=== PATIENT | female | born 1935 | race Caucasian/White ===

== ENCOUNTER → 2024-05-02 10:49 | Outpatient (REF) | payer OTHER, SELFPAY | LOC: RCS 10:49 | PROVIDERS: ATTENDING PHYSICIAN Internal Medicine Cardiovascular Disease; FAMILY PHYSICIAN Family Medicine | DX: I10 Essential (primary) hypertension (principal); R60.0 Localized edema | CPT/HCPCS: 93306 ==

== ENCOUNTER → 2025-02-05 11:02 | Outpatient (REF) | payer OTHER, SELFPAY | LOC: RCS 11:02 | PROVIDERS: ATTENDING PHYSICIAN Internal Medicine Cardiovascular Disease; FAMILY PHYSICIAN Family Medicine | DX: I50.32 Chronic diastolic (congestive) heart failure (principal); I48.21 Permanent atrial fibrillation | CPT/HCPCS: 93306 ==

== ENCOUNTER 2025-02-15 22:50 | Inpatient (IN) | payer OTHER, SELFPAY ==
[2025-02-15] VITALS (9 sets, daily range): BP systolic 126–157; BP diastolic 54–76
[2025-02-15 15:08] LABS: Hematocrit 25.0 % (37.0-47.0); Hemoglobin 7.8 g/dL (12.0-16.0); Mean Corp Hgb Conc. 31.2 g/dL (33.0-37.0); Mean Corpuscular Volume 75.8 fL (81.0-99.0); Nucleated Red Blood Cells % 0 %; Platelet Count 168 10^3/uL (130-400); Red Cell Dist. Width 17.2 % (11.5-14.5)
[2025-02-15 15:53] LABS: ALT (SGPT) 15 U/L (0-35); AST (SGOT) 26 U/L (14-36); Albumin 4.1 g/dl (3.5-5.0); Alkaline Phosphatase 87 U/L (38-126); Blood Urea Nitrogen 21 mg/dl (7-17); Calcium 9.4 mg/dl (8.4-10.2); Carbon Dioxide 27 mmol/L (22-30); Chloride 102 mmol/L (98-107); Glucose 130 mg/dl (70-99); Potassium 3.4 mmol/L (3.5-5.1); Sodium 136 mmol/L (135-145); Total Protein 6.5 g/dl (6.3-8.2); eGFR 54.19
--- NOTE | 2025-02-15 18:17 | EDRN ---
VAT RN TT'd for IV access at this time. Unable to obtain IV access x2.
[2025-02-15] MEDS: KCL 20 MEQ PO ×2 (18:33→21:39)
--- NOTE | 2025-02-15 18:35 | EDRN ---
IV VAT RN down and pt has a L FA #20 IV access at this time.
--- NOTE | 2025-02-15 18:49 | ED.GENMED ---
History of Present Illness
<Ashley Jensen PA-C - Last Filed: 02/16/25 01:02>
General
Chief Complaint: Abnormal Lab Value
Source: patient and family
Exam Limitations: none
Time Seen by Provider: 02/15/25 18:21
History of Present Illness
History of Present Illness:
89yoF with a history of CHF, aortic stenosis, atrial fibrillation, hypertension, hyperlipidemia presenting with her daughter for evaluation of an abnormal outpatient lab. Patient was seen by her coupon redemption clerk 4 days ago in the office. She was noted
to be volume overloaded with a 20 pound weight gain. She was switched from warfarin to Eliquis at that visit. She was sent for outpatient blood work which she completed 2 days ago. She was called with the results today and was advised to go to
the ED due to a hemoglobin level of 7.7. Last CBC was checked in September 2022 and hemoglobin was 9.9 at that time. Patient had some bright red rectal bleeding earlier this month which stopped about 2 weeks ago. She believes this was due to a
hemorrhoid. Last bowel movement was this morning which was brown in color. She denies any fatigue, dizziness, syncope. She endorses exertional dyspnea but states this has been ongoing for quite some time. She continues to have increasing leg
swelling and weight gain. She has gained 3 pounds since her cardiology visit 4 days ago.
Past History
<Ashley Jensen PA-C - Last Filed: 02/16/25 01:02>
Past History
ED Past Medical History: Arrthythmia (Atrial fibrillation), HTN, Hypercholesterolemia, NIDDM and Other (Osteoarthritis, lupus, migraine headaches)
ED Past Surgical History: Cholecystectomy, Gynecological (Hysterectomy), Orthopedic (Knee arthroscopy) and Tonsilectomy
Social History
Tobacco: Non-smoker
Alcohol: None
Personal:
Living: with family
Employment: Retired
Family History
Family History: Other (Noncontributory)
Phy Exam
<Ashley Jensen PA-C - Last Filed: 02/16/25 01:02>
General Physical Exam
General Presentation: well appearing and no apparent distress
General Skin: warm, dry and pale
General Habitus: elderly
General Mental: alert
ENT Exam
ENT Exam: normocephalic
Cardiovascular Exam
Cardiovascular Exam: systolic murmur and other (3+ pitting edema in lower extremities )
Pulmonary Exam
Pulmonary Exam: no respiratory distress and other (Bibasilar rales)
Gastrointestinal Exam
Gastrointestinal Exam: non tender, soft and non distended
Rectal Exam: other (Stool brown, hemoccult testing negative)
Neurological Exam
Neurological Exam: alert
Fela Coma Scale
Eye Opening: Spontaneous
Verbal Response: Oriented
Motor Response: Obeys Commands
GCS Total Score: 15
Skin Exam
Skin Exam: warm/dry and pallor
Psychiatric Exam
Psychiatric Exam: normal mood/affect
<Mario Carr MD - Last Filed: 02/16/25 17:09>
[place] Coma Scale
GCS Total Score: 15
Course
<Ashley Jensen PA-C - Last Filed: 02/16/25 01:02>
Orders/Labs/Results
Orders:
Orders
02/15/25 15:00
Type And Crossmatch [Type+Screen] Urgent
Complete Blood Count/With Diff Urgent
Comprehensive Metabolic Panel Urgent
Ferritin Urgent
Comment: ADD ON
Iron Urgent
Comment: ADD ON
Total Iron Binding Urgent
Comment: ADD ON
02/15/25 18:23
Potassium Chloride [KCl] 20 meq PO NOW STA
02/15/25 18:48
Electrocardiogram (*1) Urgent
Reason for Study: Chest Pain
Cardiac Monitoring- Treatment ONCE
EKG- Treatment ONCE
CR Chest - 2 Views Urgent
Comment:
Reason For Exam: SOB, leg swelling
02/15/25 19:16
NT-proBNP Urgent
Prothrombin Time Urgent
Troponin I Urgent
02/15/25 20:34
Add On- LAB Urgent
Tests Added?: iron, ferritin, TIBC
02/15/25 21:14
Blood Bank Products [* Blood Bank Products] Urgent
Blood Bank Products: *Packed RBC Leuko (PRBC's
Quantity: 1
Transfuse Today: Yes
Reason: Anemia
Furosemide [Lasix] 60 mg IV NOW STA
02/15/25 21:15
Potassium Chloride [KCl] 20 meq PO NOW STA
02/15/25 22:13
Admit/Transfer Patient As Directed
Co-Sign Provider:
Level of Care: Inpatient admission
Assign to:: Telemetry
Physician / Group: reina
Diagnosis: CHf
Reason for Telemetry: Acute Heart Failure
Date to Stop Telemetry: 02/18/25
Time to Stop Telemetry: 11:00
Reason for Hospitalization: anemia
CHF
Expected length of stay greater than two midnights?: Yes
ELOS- Estimated Length of Stay in days: 3
I certify the patient meets the requirements for IP care: Yes
PRN Pain Medication Management As Directed
May give lesser potent ordered pain med per pt: Yes
preference::
Protocol:: Medication orders for pain may be administered in a
manner that supports deferring to patient preference
when the pt is:
- Requesting an ordered lesser potent pain medication.
Least to most potent pain medications are defined
as: acetaminophen < NSAID < tramadol < opioids
(morphine, oxycodone, hydromorphone).
- Requesting a lesser dose of the same medication IF
ORDERED.
- Requesting a less intrusive route of administration
if both routes are prescribed by the provider (PO <
IV).
02/15/25 22:18
Code Status As Directed
Resuscitation Status: Do not resuscitate
Reached after discussion with pt or family/Healthcare POA: Yes
DNR Bracelet Application ONCE
02/16/25 01:24
CARDIOLOGY CONSULT Routine
Consulting Provider: Agustin Starks
Was physician already notified: No
Reason for consult: CHF exacerbation
Consult Notification Routine
Specialty to Notify: Cardiology
Date consulting provider notified: 02/16/25
Time consulting provider notified: 08:52
Notified:: Provider
Comment: Lewis Texted Doctor
HF DIETARY CONSULT Routine
HF EDUCATOR CONSULT Routine
Comment:
Activity As Directed
Activity Level: As Tolerated
Intake/ Output As Directed
Frequency: Per unit guidelines
Patient Education As Directed
Type: CHF folder
Comment: give on admission. Document in Interdisciplinary Education record
Sleep Apnea Assessment by RN As Directed
Comment:
Physician Instructions:
Vital Signs As Directed
Frequency: Other
Additional Instructions:: Q12 or per unit guidelines if more frequent.
Weight As Directed
Frequency: Daily
Type of Scale: Standing Scale
Comment: Daily morning weight. If unable to stand, use balanced bed scale.
Weight As Directed
Frequency: Once
Type of Scale: Standing Scale
Comment: Upon Admission. If unable to stand, use balanced bed scale.
Pulse Ox/cont/shift [RESP] Routine
Quantity: 1
Special Instructions: Daily pulse oximetry at rest. If greater than 92% at rest also obtain pulse oximetry
while ambulating as tolerated.
02/16/25 Breakfast
Cholesterol Lowering
At Your Request: Full Participation
Fluid Restriction: 1200 mL/day (40 oz)
Cholesterol Lowering: Sodium, 2 Gram
02/16/25 07:11
Basic Metabolic Panel IN AM
Cardiovascular Evaluation IN AM
Complete Blood Count/No Diff IN AM
Magnesium IN AM
TSH Reflex To Free T4 IN AM
02/16/25 08:00
Apixaban [Eliquis] 5 mg PO BID
Cholecalciferol (Vitamin D3) [VITAMIN D3 (cholecalciferol)] 50 mcg PO BID
Cyanocobalamin [Vitamin B-12] 1,000 mcg PO DAILY
Furosemide [Lasix] 40 mg IV BID AT 0800,1600
Lisinopril [Zestril] 40 mg PO DAILY
Metoprolol Xl [Toprol Xl] 25 mg PO DAILY
Potassium Chloride [KCl] 20 meq PO BID
02/16/25 18:00
Doxazosin Mesylate [Cardura] 1 mg PO QPM
Hydroxychloroquine [Plaquenil] 200 mg PO QPM
02/17/25 06:00
Basic Metabolic Panel IN AM
02/18/25 06:00
Basic Metabolic Panel IN AM
02/18/25 11:00
DC Protocol for Telemetry ONCE
Abnormal Lab Results
02/15/25 02/15/25
15:00 19:16
WBC 4.6 L 10^3/uL
(4.8-10.8)
RBC 3.30 L 10^6/uL
(4.20-5.40)
Hgb 7.8 L g/dL
(12.0-16.0)
Hct 25.0 L %
(37.0-47.0)
MCV 75.8 L fL
(81.0-99.0)
MCH 23.6 L pg
(27.0-31.0)
MCHC 31.2 L g/dL
(33.0-37.0)
RDW 17.2 H %
(11.5-14.5)
MPV 10.9 H fL
(7.4-10.4)
Absolute Lymphs (auto) 0.8 L 10^3/uL
(1.2-3.4)
Lymphocytes % 17.3 L %
(20.5-51.1)
Monocytes % 9.7 H %
(1.7-9.3)
PT 21.9 H Sec
(11.4-14.6)
Potassium 3.4 L mmol/L
(3.5-5.1)
BUN 21 H mg/dl
(7-17)
Glucose 130 H mg/dl
(70-99)
Iron < 20 L ug/dl
(37-170)
Crossmatch IS Only See Detail
02/15/25 15:00
02/15/25 15:00
Vital Signs
Initial and Last Documented VS:
Initial Vital Signs
Temp Pulse Resp BP Pulse Ox
98.3 F 87 18 150/74 99
02/15/25 14:49 02/15/25 14:49 02/15/25 14:49 02/15/25 14:49 02/15/25 14:49
Last Documented Vital Signs
Temp Pulse Resp BP Pulse Ox
98.4 F 78 16 135/77 99
02/16/25 16:00 02/16/25 16:56 02/16/25 16:00 02/16/25 16:56 02/16/25 16:00
<Mario Carr MD - Last Filed: 02/16/25 17:09>
Orders/Labs/Results
Orders:
Orders
02/15/25 15:00
Type And Crossmatch [Type+Screen] Urgent
Complete Blood Count/With Diff Urgent
Comprehensive Metabolic Panel Urgent
Ferritin Urgent
Comment: ADD ON
Iron Urgent
Comment: ADD ON
Total Iron Binding Urgent
Comment: ADD ON
02/15/25 18:23
Potassium Chloride [KCl] 20 meq PO NOW STA
02/15/25 18:48
Electrocardiogram (*1) Urgent
Reason for Study: Chest Pain
Cardiac Monitoring- Treatment ONCE
EKG- Treatment ONCE
CR Chest - 2 Views Urgent
Comment:
Reason For Exam: SOB, leg swelling
02/15/25 19:16
NT-proBNP Urgent
Prothrombin Time Urgent
Troponin I Urgent
02/15/25 20:34
Add On- LAB Urgent
Tests Added?: iron, ferritin, TIBC
02/15/25 21:14
Blood Bank Products [* Blood Bank Products] Urgent
Blood Bank Products: *Packed RBC Leuko (PRBC's
Quantity: 1
Transfuse Today: Yes
Reason: Anemia
Furosemide [Lasix] 60 mg IV NOW STA
02/15/25 21:15
Potassium Chloride [KCl] 20 meq PO NOW STA
02/15/25 22:13
Admit/Transfer Patient As Directed
Co-Sign Provider:
Level of Care: Inpatient admission
Assign to:: Telemetry
Physician / Group: reina
Diagnosis: CHf
Reason for Telemetry: Acute Heart Failure
Date to Stop Telemetry: 02/18/25
Time to Stop Telemetry: 11:00
Reason for Hospitalization: anemia
CHF
Expected length of stay greater than two midnights?: Yes
ELOS- Estimated Length of Stay in days: 3
I certify the patient meets the requirements for IP care: Yes
PRN Pain Medication Management As Directed
May give lesser potent ordered pain med per pt: Yes
preference::
Protocol:: Medication orders for pain may be administered in a
manner that supports deferring to patient preference
when the pt is:
- Requesting an ordered lesser potent pain medication.
Least to most potent pain medications are defined
as: acetaminophen < NSAID < tramadol < opioids
(morphine, oxycodone, hydromorphone).
- Requesting a lesser dose of the same medication IF
ORDERED.
- Requesting a less intrusive route of administration
if both routes are prescribed by the provider (PO <
IV).
02/15/25 22:18
Code Status As Directed
Resuscitation Status: Do not resuscitate
Reached after discussion with pt or family/Healthcare POA: Yes
DNR Bracelet Application ONCE
02/16/25 01:24
CARDIOLOGY CONSULT Routine
Consulting Provider: Agustin Starks
Was physician already notified: No
Reason for consult: CHF exacerbation
Consult Notification Routine
Specialty to Notify: Cardiology
Date consulting provider notified: 02/16/25
Time consulting provider notified: 08:52
Notified:: Provider
Comment: Lewis Texted Doctor
HF DIETARY CONSULT Routine
HF EDUCATOR CONSULT Routine
Comment:
Activity As Directed
Activity Level: As Tolerated
Intake/ Output As Directed
Frequency: Per unit guidelines
Patient Education As Directed
Type: CHF folder
Comment: give on admission. Document in Interdisciplinary Education record
Sleep Apnea Assessment by RN As Directed
Comment:
Physician Instructions:
Vital Signs As Directed
Frequency: Other
Additional Instructions:: Q12 or per unit guidelines if more frequent.
Weight As Directed
Frequency: Daily
Type of Scale: Standing Scale
Comment: Daily morning weight. If unable to stand, use balanced bed scale.
Weight As Directed
Frequency: Once
Type of Scale: Standing Scale
Comment: Upon Admission. If unable to stand, use balanced bed scale.
Pulse Ox/cont/shift [RESP] Routine
Quantity: 1
Special Instructions: Daily pulse oximetry at rest. If greater than 92% at rest also obtain pulse oximetry
while ambulating as tolerated.
02/16/25 Breakfast
Cholesterol Lowering
At Your Request: Full Participation
Fluid Restriction: 1200 mL/day (40 oz)
Cholesterol Lowering: Sodium, 2 Gram
02/16/25 07:11
Basic Metabolic Panel IN AM
Cardiovascular Evaluation IN AM
Complete Blood Count/No Diff IN AM
Magnesium IN AM
TSH Reflex To Free T4 IN AM
02/16/25 08:00
Apixaban [Eliquis] 5 mg PO BID
Cholecalciferol (Vitamin D3) [VITAMIN D3 (cholecalciferol)] 50 mcg PO BID
Cyanocobalamin [Vitamin B-12] 1,000 mcg PO DAILY
Furosemide [Lasix] 40 mg IV BID AT 0800,1600
Lisinopril [Zestril] 40 mg PO DAILY
Metoprolol Xl [Toprol Xl] 25 mg PO DAILY
Potassium Chloride [KCl] 20 meq PO BID
02/16/25 18:00
Doxazosin Mesylate [Cardura] 1 mg PO QPM
Hydroxychloroquine [Plaquenil] 200 mg PO QPM
02/17/25 06:00
Basic Metabolic Panel IN AM
02/18/25 06:00
Basic Metabolic Panel IN AM
02/18/25 11:00
DC Protocol for Telemetry ONCE
Abnormal Lab Results
02/15/25 02/15/25
15:00 19:16
WBC 4.6 L 10^3/uL
(4.8-10.8)
RBC 3.30 L 10^6/uL
(4.20-5.40)
Hgb 7.8 L g/dL
(12.0-16.0)
Hct 25.0 L %
(37.0-47.0)
MCV 75.8 L fL
(81.0-99.0)
MCH 23.6 L pg
(27.0-31.0)
MCHC 31.2 L g/dL
(33.0-37.0)
RDW 17.2 H %
(11.5-14.5)
MPV 10.9 H fL
(7.4-10.4)
Absolute Lymphs (auto) 0.8 L 10^3/uL
(1.2-3.4)
Lymphocytes % 17.3 L %
(20.5-51.1)
Monocytes % 9.7 H %
(1.7-9.3)
PT 21.9 H Sec
(11.4-14.6)
Potassium 3.4 L mmol/L
(3.5-5.1)
BUN 21 H mg/dl
(7-17)
Glucose 130 H mg/dl
(70-99)
Iron < 20 L ug/dl
(37-170)
Crossmatch IS Only See Detail
02/15/25 15:00
02/15/25 15:00
Vital Signs
Initial and Last Documented VS:
Initial Vital Signs
Temp Pulse Resp BP Pulse Ox
98.3 F 87 18 150/74 99
02/15/25 14:49 02/15/25 14:49 02/15/25 14:49 02/15/25 14:49 02/15/25 14:49
Last Documented Vital Signs
Temp Pulse Resp BP Pulse Ox
98.4 F 78 16 135/77 99
02/16/25 16:00 02/16/25 16:56 02/16/25 16:00 02/16/25 16:56 02/16/25 16:00
Anastacialt;Ashley Jensen PA-C - Last Filed: 02/16/25 01:02>
MDM/Problems Addressed
Differential Diagnosis Includes:
89yoF presenting for a hemoglobin of 7.7 on outpatient labs. C/o exertional dyspnea. Rectal bleeding earlier in the month but stopped 2 weeks ago. Patient is pale in appearance but nontoxic. She is clinically volume overloaded. Stool is brown and
Hemoccult testing negative. Vital stable. Differential diagnosis includes but is not limited to: Iron deficiency anemia, anemia of chronic disease, acute blood loss anemia, dilutional anemia from excess fluid
Initial ED plan: Workup initiated in triage. Hemoglobin is 7.8 today. Will check cardiac labs, EKG, and chest x-ray.
<Ashley Jensen PA-C - Last Filed: 02/16/25 01:02>
*Pulse Oximetry
SaO2: 99
Oxygen Mode of Delivery: Room air
Patient hypoxic: no
*EKG
Interpreted by ED Provider?: Yes
EKG Intrepretation Date: 02/15/25
Heart Rate: 78
Rate: normal
Rhythm: a-fib
[place]: normal axis
Interval: normal interval
QRS Pattern: normal QRS
Ischemia: other (nonspecific T wave changes)
*Critical Care Note
Total Time (30-74mins, 75-104mins- exclusive of procedures): Not Applicable
<Ashley Jensen PA-C - Last Filed: 02/16/25 01:02>
Update Note
Update Note:
BNP elevated at 1800 and chest x-ray shows evidence of CHF. Consent obtained and 1 unit PRBC ordered for transfusion. 60 mg IV Lasix also ordered. Will admit for further management.
ED Attending Note
<Ashley Jensen PA-C - Last Filed: 02/16/25 01:02>
-
Portions of this chart may have been created with voice recognition software.� Occasional wrong word or��sound alike� substitutions may have occurred due to the inherent limitations of voice recognition software.
<Mario Carr MD - Last Filed: 02/16/25 17:09>
ED Attending Note
Patient seen and examined by attending physician: Yes
ED Attending Note:
Patient with history of atrial fibrillation on Eliquis and congestive heart failure on Lasix, presents to ED for evaluation after outpatient blood work ordered by her coupon redemption clerk revealed low hemoglobin. Patient states that over the past 1 month,
she has noticed increased work of breathing with exertion with generalized weakness, as well as increased leg swelling. Denies chest pain. Denies nausea or vomiting. Denies fever or chills. Denies bloody bowel movements or urination. Denies
previous history of blood transfusion. Denies recent change in medications or diet.
Physical Exam
General: no apparent distress, not acutely ill. afebrile
Head: nc/at. eomi
Neck: supple. normal range of motion
Heart: s1/s2 regular rate and rhythm
Lungs: no acute respiratory distress. diminshed breath sounds bilaterally
Abdomen: normal bowel sounds. not tender.
Neuro: alert and oriented x 3. no focal neurological deficits
Skin: no rash
Psychiatric: well kept. interactive and cooperative
Extremities: LE b/l edema. no calf tenderness
Rectal exam, performed by SMILEY Ramirez - brown stool, heme negative.
H/H noted. History and exam concerning for symptomatic anemia. However, in light of patient's overall appearance of volume overload, patient will also require diuresis pre and post blood transfusion.
Blood transfusion consent on the chart.
Discharge Plan
Departure
Patient Disposition: Admit
Date of Disposition: 02/15/25
Time of Disposition: 21:26
Presentation/result/management discussed w/ accepting MD/DO: Hospitalist
Discharge Problem:
Symptomatic anemia, Volume overload
Interventions
Interventions:
*Risk Screen - Suicide Last Done: 02/15/25 17:52
*General Assessment Last Done: 02/15/25 17:52
*Neglect/Abuse Screening Last Done: 02/15/25 17:52
*ED COVID-19 Vaccine History Last Done: 02/15/25 17:52
*ED Influenza Vaccine History Last Done: 02/15/25 17:52
[facility] Risk Assessment Tool Last Done: 02/15/25 17:52
*Nursing Disposition Last Done: 02/16/25 01:11
[2025-02-15 19:41] LABS: INR 1.89; PT 21.9 Sec (11.4-14.6)
[2025-02-15 19:54] LABS: Troponin I < 0.012 ng/ml
[2025-02-15 21:14] LABS: Iron < 20 ug/dl (37-170)
[2025-02-15 21:22] LABS: Total Iron Binding Capacity 418 ug/dl (265-497)
[2025-02-15] MEDS: LASIX 60 MG IV (21:38)
--- NOTE | 2025-02-15 21:41 | HPS.HSE ---
Addendum entered and electronically signed by Terry Carver DO 02/15/25 23:11:
Patient seen and examined independently. Agree with findings and plan as set forth by TAMIKO Marc.
Patient is an 89y F with PMH significant for A-Fib, CHF and aortic stenosis who presents to ED for evaluation of fatigue and abnormal labs. Patient states that she has been feeling increasingly tired and fatigued for 'a while' now. She was
evaluated recently by Cardiology and found to have 20 pound weight gain from prior visits. She was advised to obtain labs and was called today and notified that her Hgb was very low and she should present to the ED for further evaluation.
Patient notes history of hemorrhoids and states that she had some bleeding intermittently for 2-3 weeks. This episode ended 2 weeks ago with no BRBPR noted since that time.
Patient denies any chest pain, abdominal pain, N/V, etc.
Ass:
Multifactorial Dyspnea
Symptomatic Anemia / Blood Loss Anemia
Acute on Chronic HFpEF
Severe Aortic Stenosis
Chronic Pericardial Effusion
Benign Hypertension
Permanent Atrial Fibrillation
Lupus
Hemorrhoids
Plan:
Admit for further evaluation and treatment.
Anemia likely due to combination of blood loss / hemorrhoidal bleeding + dilution from significant volume overload.
PRBXCs x 1 transfused in the ED.
IV Lasix 60mg x 1 given. Continue 40mg IV BID for now.
Follow I/Os, daily weights, etc.
Echo was completed recently. Normal LVEF. Severe . Moderate pericardial effusion
Cardiology evaluation for additional recommendations.
Monitor for any new / recurrent bleeding. Consider Colorectal evaluation if needed (previously seen by Dr. Thomas).
Continue current meds including Eliquis for now as no signs of current / active bleeding.
Original Note:
Family Physician
-
Family Physician: Duy Lester
Chief Complaint
-
abnormal blood work
History of Present Illness
89yoF with a history of CHF, aortic stenosis, atrial fibrillation, hypertension, hyperlipidemia presenting with her daughter for evaluation of an abnormal outpatient lab. 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 She was noted
to be volume overloaded with a 20 pound weight gain.She was sent for outpatient blood work which she completed 2 days ago. She was called with the results today and was advised to go to the ED due to a hemoglobin level of 7.7. patient stated
intermittent hemorrhoidal bleed for 3- 4 week, which stopped two weeks ago. she received hemorrhoid injection few months ago. she had a clean clinoscopy in November. patient complained of exertional dyspnea for weeks. denied chest pain, fever,
chills, cough,congestion. denied GALEANA, dizzy or syncope. denied abdominal pain,n,v,d. denied dysuria or hematuria. she complained of worsening LE. she also complained of abdominal edema.
one unit of blood ordered in the ER. patient received a dose of Lasix in Er. 40 meq of potassium in ER. admitting for further management.
Medical History
Past Medical History
Past Medical History: Reports Other
Additional Past Medical History:
Hypercholesteremia, mitral regurgitation, tricuspid regurgitation, lupus, peripheral insufficiency, varicella, pulmonary hypertension, hiatal hernia, A-fib, colon polyp, migraine, hypertension, internal hemorrhoids,
Past Surgical History: Reports Other
Additional Past Surgical History:
Blepharoplasty, cholecystectomy, tonsillectomy, hysterectomy, left hip surgery,
Social History
Tobacco: Non-smoker
Alcohol: None
Drug: None
Personal: Single
Living: Alone
Family History
Family History: Not pertinent
Allergies / Home Medications
Allergies reflects when Allergies were last updated in [facility].
Home Medications with original date entered in [facility]
Allergy/Medication List:
Allergies
Allergy/AdvReac Type Severity Reaction Status Date / Time
latex Allergy sites of Verified 02/15/25 14:53
contact
was
sore/raw
carboncaine Allergy Unknown Uncoded 02/15/25 14:53
Home Medications
hydroxychloroquine 200 mg tablet 200 mg PO QPM lupus 11/20/14
potassium chloride 20 mEq tablet,extended release(part/cryst) (Klor-Con M) 20 meq PO BID Electrolyte Repletion ##0 11/20/14
carboxymethylcellulose sodium 0.25 % eye drops in a dropperette (TheraTears) 1 drp BOTH EYES BID Eye Condition 12/14/19
flaxseed oil 1,000 mg capsule 1 tab PO BID Supplement 12/14/19
multivitamin with folic acid 400 mcg tablet (Tab-A-Norma) 1 tab PO DAILY Supplement 12/14/19
calcium carbonate (Calcium 600) 600 mg PO DAILY Supplement 07/07/22
cholecalciferol (vitamin D3) 25 mcg (1,000 unit) tablet (Vitamin D3) 50 mcg PO BID Supplement 07/07/22
cyanocobalamin (vitamin B-12) 1,000 mcg tablet 1,000 mcg PO DAILY Supplement 07/07/22
doxazosin 1 mg tablet 1 mg PO QPM Blood pressure 07/07/22
acetaminophen 500 mg tablet (Pain Relief Extra Strength (acetaminophen)) 500 mg PO TID Anti-Inflammatory 02/15/25
apixaban 5 mg tablet (Eliquis) 5 mg PO BID Blood Clot Prevention/Tx 02/15/25
benazepril 40 mg tablet 40 mg PO DAILY Heart Disease/Condition 02/15/25
furosemide 20 mg tablet (Lasix) 40 mg PO DAILY Fluid Retention/Swelling 02/15/25
furosemide 40 mg tablet (Lasix) 80 mg PO DAILY@1600 Fluid Retention/Swelling 02/15/25
metoprolol succinate 25 mg tablet,extended release 24 hr (Toprol XL) 25 mg PO DAILY Heart Disease/Condition 02/15/25
Review of Systems
-
Constitutional: Reports Weight Gain
EENT: Reports No Symptoms
Respiratory: Reports Trouble Breathing
Cardiac: Reports No Symptoms
Abdomen/GI: Reports No Symptoms
: Reports No Symptoms
Musculoskeletal: Reports Edema
Skin: Reports No Symptoms
Neurological: Reports No Symptoms
Endocrine: Reports No Symptoms
Hematologic/Lymphatic: Reports No Symptoms
Psych: Reports No Symptoms
Physical Exam
Vital Signs
Vital Signs
Temp Pulse Resp BP Pulse Ox
98.3 F 90 18 138/75 99
02/15/25 14:49 02/15/25 18:09 02/15/25 18:48 02/15/25 18:09 02/15/25 18:52
Physical Exam
General: Well Developed, Well Nourished and No Apparent Distress
HEENT: NormoCephalic, Moist mucous membranes and Atraumatic
Respiratory: Clear
Cardiac: S1/S2 and Regular Rhythm; No Murmur or Rub
GI: Soft, Non Tender, Non Distended and Normal Bowel Sounds; No Organomegaly
Rectal: Deferred by Provider
Musculoskeletal: No Clubbing, No Cyanosis and Other (b/l LE edema with dry skin)
Skin: No Rash
Neuro: AO x 3 and Nonfocal/grossly intact
Psych: Calm
Laboratory Results
-
02/15/25 15:00
02/15/25 15:00
Laboratory Results
PT 21.9 Sec (11.4-14.6) H 02/15/25 19:16
INR 1.89 02/15/25 19:16
Total Bilirubin 0.8 mg/dl (0.2-1.3) 02/15/25 15:00
AST 26 U/L (14-36) 02/15/25 15:00
ALT 15 U/L (0-35) 02/15/25 15:00
Alkaline Phosphatase 87 U/L (38-126) 02/15/25 15:00
Troponin I < 0.012 ng/ml 02/15/25 19:16
Data Reviewed
-
Diagnostic Radiology: Discussed with Physician
Lab Data: Labs Reviewed by me
Impression/Plan
-
# Exertional dyspnea multifactorial
#acute on chronic iron def anemia likely from recent hemorrhoids bleed
-not bleeding for past two week.
- iron <20,ferritin pending
- Stool brown and Hemoccult negative
- 1 unit PRBCs ordered in ER
- Continue to monitor hemoglobin
-transfuse if hgb less than 7
#Hypokalemia likely from diuretics
- K3.4
-kcl in Er
-BP in am
#CHF exacerbation
#severe pulmonary HTN
-BNP 1800
-chest x ray with CHF
-iv diuretics continued
-strict I&O,daily weight, fluid restriction
-ECHO with 1. Normal left ventricle size and funtion without wall motion abnormalities.
2. Mildly dilated right ventricle with mildly reduced function.
3. Severe low flow low gradient severe aortic valve stenosis (PG 42.5, MG 23, DVI 0.2-3, SVI 31, area 0.8 cm2.
4. Mild mitral regurgitation.
5. Severe tricuspid regurgitation. Severe pulmonary hypertension with PASP 75 mmHg.
6. Moderate loculated posterior pericardial effusion.
7. Compared to a prior transthoracic echocardiogram study from 05/02/24 no significant changes are seen.
#Chronic pericardial effusion
-recent ECHO with A moderately sized pericardial effusion is present posterior to the left ventricle.
#Essential hypertension
-benazepril,doxazosin continued with hold parameter
#Permanent atrial fibrillation
-eliquis. Toprol continued
#SLE
-continue Plaquenil.
-Chronic leukopenia
-unclear etiology.
#DVT prophylaxis
-eliquis
DNR
[2025-02-15 22:10] LABS: Ferritin 13.8 ng/ml (11.1-264.0)
[2025-02-16] VITALS (7 sets, daily range): BP systolic 113–141; BP diastolic 58–84; BMI 29.6
--- NOTE | 2025-02-16 03:46 | PTCARENOTE ---
Pt admitted from ED. AAOx3. Ambulated from stretcher to bed with home walker. Pt afebrile, VSS. Afib on tele monitor. Pt oriented to room. Call boateng within reach and bed in lowest position.
[2025-02-16 07:57] LABS: Hematocrit 26.3 % (37.0-47.0); Hemoglobin 8.4 g/dL (12.0-16.0); Mean Corp Hgb Conc. 31.9 g/dL (33.0-37.0); Mean Corpuscular Volume 75.4 fL (81.0-99.0); Platelet Count 158 10^3/uL (130-400); Red Cell Dist. Width 18.3 % (11.5-14.5)
[2025-02-16] MEDS: KCL 20 MEQ PO ×2 (08:07→20:34)
[2025-02-16] MEDS: TOPROL XL PO (08:07)
[2025-02-16] MEDS: VITAMIN B-12 1000 MCG PO (08:07)
[2025-02-16] MEDS: LASIX 40 MG IV ×2 (08:08→16:56)
[2025-02-16] MEDS: VITAMIN D3 (cholecalciferol) 50 MCG PO ×2 (08:08→20:33)
[2025-02-16] MEDS: ELIQUIS 5 MG PO (08:08)
[2025-02-16] MEDS: ZESTRIL 40 MG PO (08:08)
[2025-02-16 08:28] LABS: Blood Urea Nitrogen 18 mg/dl (7-17); Calcium 9.0 mg/dl (8.4-10.2); Carbon Dioxide 28 mmol/L (22-30); Chloride 104 mmol/L (98-107); Estimated Creatinine Clearance 42 ml/min; Glucose 131 mg/dl (70-99); HDL Cholesterol 43 mg/dl; LDL Cholesterol, Calculated 39 mg/dl; Magnesium 2.4 mg/dl (1.6-2.3); Potassium 3.7 mmol/L (3.5-5.1); Sodium 138 mmol/L (135-145); Very Low Density Lipoprotein 11 mg/dl (0-30); eGFR 54.19
--- NOTE | 2025-02-16 08:33 | CON.CAR ---
Consultation
Consultation Request
Date/Time Consultation Requested: 02/16/25 6:00AM
Date/Time Consultation Performed: 02/16/25 8:00 AM
Requesting Provider: Dr Anderson
Performing Provider: Dr smith
Reason for Consultation: sob
Medical History
-
Chief Complaint: sob
History of Present Illness:
89-year-old female with past medical history of aortic stenosis, chronic heart failure with preserved ejection fraction, severe pulmonary pretension, permanent atrial fibrillation, severe tricuspid regurgitation, hypertension, lupus, and venous
insufficiency presents with fatigue, malaise, and anemia. She has had increased weight gain recently as an outpatient. She has had increased shortness of breath. She was found to have anemia with hemoglobin of 7.8. She denies any chest pains.
Her weight and symptoms have slowly progressed. She has no coughing or wheezing. She has noticed some black stool and some bleeding. In February 2025 she was recently switched from Coumadin to Eliquis. She feels no palpitations or syncope. She
has declined evaluation for transcatheter aortic valve replacement. She has no recent falls.
Past Medical History
Past Medical History: HTN, Hypercholesterolemia and Other (Severe aortic stenosis, pulm hypertension, severe tricuspid regurgitation, permanent atrial fibrillation, chronic heart failure with preserved ejection fraction, lupus)
Past Surgical History: Orthopedic
Social History
Tobacco: Non-Smoker
Alcohol: None
Drug: None
Family History
Family History: Hypertension
Allergies / Home Medications
Allergy/AdvReac Type Severity Reaction Status Date / Time
latex Allergy sites of Verified 02/15/25 14:53
contact
was
sore/raw
carboncaine Allergy Unknown Uncoded 02/15/25 14:53
�Medication �Instructions �Recorded �Confirmed �Type
hydroxychloroquine 200 mg tablet 200 mg PO QPM lupus 11/20/14 02/15/25 History
potassium chloride 20 mEq 20 meq PO BID Electrolyte 11/20/14 02/15/25 History
tablet,extended Repletion ##0
release(part/cryst) (Klor-Con M)
carboxymethylcellulose sodium 0.25 1 drp BOTH EYES BID Eye Condition 12/14/19 02/15/25 History
% eye drops in a dropperette
(TheraTears)
flaxseed oil 1,000 mg capsule 1 tab PO BID Supplement 12/14/19 02/15/25 History
multivitamin with folic acid 400 1 tab PO DAILY Supplement 12/14/19 02/15/25 History
mcg tablet (Tab-A-Norma)
calcium carbonate (Calcium 600) 600 mg PO DAILY Supplement 07/07/22 02/15/25 History
cholecalciferol (vitamin D3) 25 50 mcg PO BID Supplement 07/07/22 02/15/25 History
mcg (1,000 unit) tablet (Vitamin
D3)
cyanocobalamin (vitamin B-12) 1,000 mcg PO DAILY Supplement 07/07/22 02/15/25 History
1,000 mcg tablet
doxazosin 1 mg tablet 1 mg PO QPM Blood pressure 07/07/22 02/15/25 History
acetaminophen 500 mg tablet (Pain 500 mg PO TID Anti-Inflammatory 02/15/25 02/15/25 History
Relief Extra Strength
(acetaminophen))
apixaban 5 mg tablet (Eliquis) 5 mg PO BID Blood Clot 02/15/25 02/15/25 History
Prevention/Tx
benazepril 40 mg tablet 40 mg PO DAILY Heart 02/15/25 02/15/25 History
Disease/Condition
furosemide 20 mg tablet (Lasix) 40 mg PO DAILY Fluid 02/15/25 02/15/25 History
Retention/Swelling
furosemide 40 mg tablet (Lasix) 80 mg PO DAILY@1600 Fluid 02/15/25 02/15/25 History
Retention/Swelling
metoprolol succinate 25 mg 25 mg PO DAILY Heart 02/15/25 02/15/25 History
tablet,extended release 24 hr Disease/Condition
(Toprol XL)
Review of Systems
-
History Source: Patient
Constitutional: Weight Gain and Fatigue
EENT: No Symptoms
Respiratory: Trouble Breathing
Cardiac: No Symptoms
Abdomen/GI: Black Stools
: No Symptoms
Musculoskeletal: No Symptoms
Neurological: Weakness
Endocrine: No Symptoms
Physical Exam
Vital Signs
Temp Pulse Resp BP Pulse Ox
98.4 F 58 16 131/67 96
02/16/25 07:30 02/16/25 08:07 02/16/25 07:30 02/16/25 08:08 02/16/25 07:30
Lab Results
02/16/25 07:11
02/16/25 07:11
Troponin I < 0.012 ng/ml 02/15/25 19:16
Xib-Z-Cjctlbiyymg Pept 1800 pg/ml 02/15/25 19:16
Physical Exam
General: No Apparent Distress and Comfortable
HEENT: Normocephalic and Anicteric
Respiratory: Rhonchi and Non Labored Respirations
Cardiac: S1/S2, Irregular Rhythm and Murmur (04/12 AHSM)
GI: Soft and Non Tender
Musculoskeletal: Edema
Skin: Warm and Dry
Neuro: Awake and Alert
Psych: Calm
Impression / Plan
-
PCP: Dr. Lester
Funeral Assistant: Dr. YASSINE Pink
Impression:
Acute on Chronic HFpEF
severe
anemia/GI bleed
Severe tricuspid insufficiency
Severe pulmonary hypertension
Chronic LE edema/Venous insufficiency
Chronic Pericardial effusion, sm-mod
Permanent atrial fibrillation
HTN
HLD
Mild MR
Lupus
Echo 04/13/2021: EF 70%, mild MR, massive left atrial dilatation, aortic sclerosis, severe TR with severe pulmonary HTN 81-87 mmHg, moderate posterior pericardial effusion without evidence of hemodynamic compromise
Echo 07/08/2022: EF 67% massively dilated RA, dilated and hypokinetic RV, mild to moderate MR, severe TR, PAP 79 mmHg small to moderate pericardial effusion without evidence of hemodynamic compromise.� No significant change from prior echo in April
2021
ECHO 09/20/22: EF 55%, flattened septum in systole and diastole consistent with RV pressure and volume overload, thickened fibrinous material surrounding heart, suspected RV enlarged, mild MR, trace AR, severe TR, PAP 75 mmHg, small to moderate
pericardial effusion without evidence of hemodynamic compromise, pleural effusion also present
Echo 02/05/25: EF 61%, mildly dilated right ventricle with mildly reduced RV function. Severe aortic stenosis with low-flow low gradient, mean gradient 23, aortic valve area 0.8 cm�, stroke-volume index 31, severe TR with PA pressure 75, moderate
posterior pericardial effusion
Plan:
She presents with fatigue, weight gain, and a new microcytic anemia. She was recently switched to Eliquis. She does have permanent atrial fibrillation and her [id number] score is high. Will hold Eliquis for 24 hours.
Would recommend GI evaluation to consider for colonoscopy/endoscopy. Hemoglobin has improved and is up to 8.4. She has seen Dr. Thomas in the past for possible hemorrhoids. Continue to follow hemoglobin closely.
She is volume overloaded. Continue Lasix 40 mg IV twice daily. Recent echo was reviewed. She does have severe aortic stenosis with severe pulmonary hypertension. She has declined evaluation in the past for transcatheter aortic valve replacement.
Continue rate control strategy for her atrial fibrillation. She does have some mild bradycardia. Continue to follow on telemetry. Continue Toprol 25 mg daily.
Her blood pressure is currently stable. Continue lisinopril, Cardura and metoprolol
Discussed plan at length with patient and daughter.
Data Reviewed
-
Medical Tests (Nuc Med, Echo etc): Report Reviewed by me
Labs: Labs Reviewed by me
--- NOTE | 2025-02-16 10:25 | CON.GI ---
Addendum entered and electronically signed by Estela Marinelli DO 02/16/25 11:44:
The patient was seen and examined by me independently in collaboration with the nurse practitioner.
Past medical history/social history/medications/allergies/family history reviewed.
Lab data and imaging data reviewed.
Haley Puente is an 89 y.o. female with pmhx , HFpEF, severe pulm HTN, permanent afib, severe TR, HTN, SLE, venous insufficiency admitted with fatigue, symptomatic anemia and an epsiode of rectal bleeding. Hgb on admission found to be 8.4,
microcytic. Her last hemoglobin was in 2022, at which time hgb around 9-10, which appears to be her baseline but unclear when she dropped. She was seen by Dr. Thomas over the summer for rectal bleeding, found to have hemorrhoids, sclerotherapy
performed. Reports last episode of rectal bleeding was 2 weeks ago, has been having brown stool since, heme tested in the ER which was negative
Echo 02/05/25: EF 61%, mildly dilated right ventricle with mildly reduced RV function. Severe aortic stenosis with low-flow low gradient, mean gradient 23, aortic valve area 0.8 cm�, stroke-volume index 31, severe TR with PA pressure 75, moderate
posterior pericardial effusion
On exam, she is volume overloaded, seen by cardiology who is recommending diuresis. She has declined evaluation in the past for aortic valve replacement.
Discussed her anemia and further GI evaluations that can be performed to properly assess for GI source of her anemia with both EGD and Colonoscopy. Given her age and comorbidities, discussed risks/benefits at length. She is certainly higher risk to
undergo these procedures. Large differential diagnosis, last colonoscopy 10 years ago. She would like to think about it for now, we will reach out to her daughter to discuss as well. Monitor hemoglobin and transfuse for Hgb <8. Eliquis on hold.
Diuresis per cardiology. Will follow-up with her tomorrow to see what she decides.
Original Note:
Consultation
-
Date/Time Consultation Requested: 02/16/25 1015
Date/Time Consultation Performed: 02/16/25 1030
Requesting Provider: Abdiel Donnelly DO
Performing Provider: TAMIKO Chavarria, Alison Marinelli DO
Reason for Consultation: anemia
Medical History
Chief Complaint / HPI
Chief Complaint: abnormal labs, shortness of breath.
History of Present Illness:
Pt is a 89yo with multiple medical problems afib on Eliquis with recent change from coumadin, HTN, hyperlipidemia, CKD, valvular disease (severe , severe TR), HFpEF, lupus, B12 deficiency on supplement, venous insufficiency, varicella, pulm HTN,
HH, adenomatous colon polyps, migraines, hemorrhoids, DDD , rectal bleeding with prior sclerotherapy with CR surgery 09/2024 with admission 02/16 to ER overnight with abnormal labs. She had recent cardiology evaluation with fluid overload and 20 lb
wt gain. She had recent switch from Warfarin to Eliquis. She was noted with drop in hbg to 7.7 and sent to ER. She had hx hemorrhoidal bleeding and admits to recent bleeding 2 weeks prior to admission. In ER noted with brown heme neg stools.
Labs on admission with hbg 7.8 then rise to 8.4 after 1 unit PRBC's. Iron studies with iron deficiency(iron <20, TIBC 418 iron sat not reported, ferritin 13.8).
In review with patient she admits to recent bright red blood per rectum that stopped about 2 weeks ago. She otherwise denies dysphagia, GERD, nausea, vomiting, hematemesis, abdominal pain, diarrhea, constipation, or black stools. No hx EGD in
past. No NSAID use.
09/2014 Dr. Aguirre colonoscopy1) Diverticulosis of the sigmoid and ascending colon. 2) 7mm sessile polyp removed from the descending colon. adenomatous 3) Two transverse colon polyps, largest being 9mm. Both polyps were removed bx adenomatous 4)
Nodular ileocecal valve and cecum. These findings appeared to be lymphoid aggregates. Biopsies were taken with lymphoid follicles 5) Normal appearing terminal ileum. bx neg.
Past Medical History
Past Medical History: Arrhythmias (afib on Eliquis ), CHF, HTN, Hypercholesterolemia, Renal Failure (CKD), Valvular Disease (severe , severe TR) and Other (lupus, venous insufficiency, varicella, pulm HTN, HH, colon polyps, migraines, hemorrhoids,
DDD , rectal bleeding with prior sclerotherapy with CR surgery 09/2024)
Past Surgical History: Cholecystectomy, Gynecological (AUDI/BSO), Orthopedic (left knee surgery, hip surgery with repair, benign ovarian mass), Tonsilectomy and Other (blepharoplasty)
Social History
Tobacco: Non-Smoker
Alcohol: None
Drug: None
Living: Alone
Employment: Retired
Family History
Family History: Other (denies family hx colon CA or GI problems )
Allergies / Home Medications
Allergy/AdvReac Type Severity Reaction Status Date / Time
latex Allergy sites of Verified 02/15/25 14:53
contact
was
sore/raw
carboncaine Allergy Unknown Uncoded 02/15/25 14:53
�Medication �Instructions �Recorded
hydroxychloroquine 200 mg tablet 200 mg PO QPM lupus 11/20/14
potassium chloride 20 mEq 20 meq PO BID Electrolyte 11/20/14
tablet,extended Repletion ##0
release(part/cryst) (Klor-Con M)
carboxymethylcellulose sodium 0.25 1 drp BOTH EYES BID Eye Condition 12/14/19
% eye drops in a dropperette
(TheraTears)
flaxseed oil 1,000 mg capsule 1 tab PO BID Supplement 12/14/19
multivitamin with folic acid 400 1 tab PO DAILY Supplement 12/14/19
mcg tablet (Tab-A-Norma)
calcium carbonate (Calcium 600) 600 mg PO DAILY Supplement 07/07/22
cholecalciferol (vitamin D3) 25 50 mcg PO BID Supplement 07/07/22
mcg (1,000 unit) tablet (Vitamin
D3)
cyanocobalamin (vitamin B-12) 1,000 mcg PO DAILY Supplement 07/07/22
1,000 mcg tablet
doxazosin 1 mg tablet 1 mg PO QPM Blood pressure 07/07/22
acetaminophen 500 mg tablet (Pain 500 mg PO TID Anti-Inflammatory 02/15/25
Relief Extra Strength
(acetaminophen))
apixaban 5 mg tablet (Eliquis) 5 mg PO BID Blood Clot 02/15/25
Prevention/Tx
benazepril 40 mg tablet 40 mg PO DAILY Heart 02/15/25
Disease/Condition
furosemide 20 mg tablet (Lasix) 40 mg PO DAILY Fluid 02/15/25
Retention/Swelling
furosemide 40 mg tablet (Lasix) 80 mg PO DAILY@1600 Fluid 02/15/25
Retention/Swelling
metoprolol succinate 25 mg 25 mg PO DAILY Heart 02/15/25
tablet,extended release 24 hr Disease/Condition
(Toprol XL)
Review of Systems
-
History Source: Patient
Constitutional: Reports Weight Gain (prior to admission )
EENT: Reports No Symptoms
Respiratory: Reports No Symptoms and Trouble Breathing
Cardiac: Reports No Symptoms
Abdomen/GI: Reports Bloody Stools (stopped 2 weeks ago )
: Reports No Symptoms
Musculoskeletal: Reports No Symptoms
Skin: Reports Other (LE swelling)
Neurological: Reports Weakness
Endocrine: Reports No Symptoms
Hematologic/Lymphatic: Reports Bleeding (recent now stopped )
Vital Signs
Temp Pulse Resp BP Pulse Ox
98.4 F 58 16 131/67 96
02/16/25 07:30 02/16/25 08:07 02/16/25 07:30 02/16/25 08:08 02/16/25 07:30
Physical Exam
Exam
General: Well Developed, Well Nourished, No Apparent Distress and Other (elderly female- pale appearing)
HEENT: Normocephalic and Anicteric
Respiratory: Clear
Cardiac: Regular Rhythm, Murmur and Peripheral Edema
GI: Soft, Non Tender and Non Distended
Rectal: Other (heme neg in ER)
Musculoskeletal: No Clubbing and No Cyanosis
Skin: Warm and Dry
Neuro: Awake, Alert and AO x 3
Psych: Calm
Results
WBC 3.6 10^3/uL (4.8-10.8) L 02/16/25 07:11
Hgb 8.4 g/dL (12.0-16.0) L 02/16/25 07:11
Hct 26.3 % (37.0-47.0) L 02/16/25 07:11
MCV 75.4 fL (81.0-99.0) L 02/16/25 07:11
Plt Count 158 10^3/uL (130-400) 02/16/25 07:11
Absolute Neuts (auto) 3.1 10^3/uL (1.4-6.5) 02/15/25 15:00
PT 21.9 Sec (11.4-14.6) H 02/15/25 19:16
INR 1.89 02/15/25 19:16
Sodium 138 mmol/L (135-145) 02/16/25 07:11
Potassium 3.7 mmol/L (3.5-5.1) 02/16/25 07:11
Chloride 104 mmol/L (98-107) 02/16/25 07:11
Carbon Dioxide 28 mmol/L (22-30) 02/16/25 07:11
BUN 18 mg/dl (7-17) H 02/16/25 07:11
Creatinine 1.0 mg/dL (0.6-1.0) 02/16/25 07:11
Calcium 9.0 mg/dl (8.4-10.2) 02/16/25 07:11
Total Bilirubin 0.8 mg/dl (0.2-1.3) 02/15/25 15:00
AST 26 U/L (14-36) 02/15/25 15:00
ALT 15 U/L (0-35) 02/15/25 15:00
Alkaline Phosphatase 87 U/L (38-126) 02/15/25 15:00
Diagnostic Image Results:
02/15/25 CXR
Congestive heart failure.
Prior GI Procedures:
EGD: none
Colonoscopy:
09/2014 Dr. Aguirre colonoscopy1) Diverticulosis of the sigmoid and ascending colon. 2) 7mm sessile polyp removed from the descending colon. adenomatous 3) Two transverse colon polyps, largest being 9mm. Both polyps were removed bx adenomatous 4)
Nodular ileocecal valve and cecum. These findings appeared to be lymphoid aggregates. Biopsies were taken with lymphoid follicles 5) Normal appearing terminal ileum. bx neg.
Assessment / Plan
-
Pt is a 89yo with multiple medical problems afib on Eliquis with recent change off coumadin , HTN, hyperlipidemia, CKD, valvular disease (severe , severe TR), HFpEF, lupus, B12 deficiency on supplement, venous insufficiency, varicella, pulm HTN,
HH, adenomatous colon polyps, migraines, hemorrhoids, DDD , rectal bleeding with prior sclerotherapy with CR surgery 09/2024 with admission 02/16 to ER overnight with abnormal labs. She had recent cardiology evaluation with fluid overload and 20 lb
wt gain. She had recent switch from Warfarin to Eliquis. She was noted with drop in hbg to 7.7 and sent to ER. She had hx hemorrhoidal bleeding and admits to recent bleeding 2 weeks prior to admission. In ER noted with brown heme neg stools.
Labs on admission with hbg 7.8 then rise to 8.4 after 1 unit PRBC's. Iron studies with iron deficiency(iron <20, TIBC 418 iron sat not reported, ferritin 13.8). Last hbg check 9.9 in 2022.
09/2014 Dr. Aguirre colonoscopy1) Diverticulosis of the sigmoid and ascending colon. 2) 7mm sessile polyp removed from the descending colon. adenomatous 3) Two transverse colon polyps, largest being 9mm. Both polyps were removed bx adenomatous 4)
Nodular ileocecal valve and cecum. These findings appeared to be lymphoid aggregates. Biopsies were taken with lymphoid follicles 5) Normal appearing terminal ileum. bx neg.
-microcytic JENNIFER acute on chronic with heme neg brown stool in ER
-rectal bleeding -- possible hemorrhoid related with hx sclerotherapy with CR surgery in September 2024
-acute on chronic CHF on admission
-afib on Eliquis prior to admission with recent switch from Coumadin
valvular disease (severe , severe TR
-hx adenomatous colon polyps
-hx HH
-hx B12 deficiency on supplement
other med problems:
HTN, hyperlipidemia, CKD, lupus, venous insufficiency, varicella, pulm HTN, migraines, DDD
PLAN:
Etiology of worsening anemia with iron deficiency related to AVM's with hx valvular disease, hemorrhoidal with recent bleeding, satnam lesion with hx HH, vs mass/polyp etc with last screening 10 years ago vs other
Eliquis currently on hold last 02/15 per chart
medical optimization with cardiology with concern for CHF on admission
add IV iron
trend hbg
cont diet
remains off PPI therapy
check B12/folate level as has been on B12 supplementation
if recurrent rectal bleeding may need reassessment with CR surgery with prior treatment with Dr. Thomas
discussed with pt about work up with aggressive work up with EGD/colon if neg capsule vs conservative measures given other medical issue with close monitoring with hbg and IV and heme follow up. Discussed if holding on GI testing cancer can be
missed and anemia can be recurrent issues. She was undecided on how to proceed. I left message for daughter with message to call office and attempted son with no answer. Also discussed if she wishes testing can be done outpatient as currently
stool heme neg.
-
-
Thank you for consultation and allowing me to participate in the patient's care. Please call the rehabilitation psychologist GI physician during the after hours with any questions or concerns.
--- NOTE | 2025-02-16 11:58 | W.PN.HOSP.TC ---
Today's Communication/Plan
-
Monitor hemoglobin
Continue diuresis
Assessment / Plan
Assessment / Plan
Gen-AAOx3, NAD
HEENT-NC, AT, anicteric, clear oral mm
Neck-supple
CV-reg, no M, +S1/S2
Lungs-mild rales in the bases bilaterally
Abd-soft, NT, ND
Ext-no edema
Musculoskeletal-no cyanosis, clubbing
Skin-warm and dry
Neuro-grossly non-focal
Psych-calm, cooperative
Acute on chronic heart failure with preserved EF exacerbation -continue IV Lasix. Cardiology following. BNP 1800. Admission chest x-ray shows pulmonary edema.
Acute blood loss anemia -with acute on chronic anemia. Presentation with dyspnea on exertion. Iron deficiency anemia noted on labs. Transfuse 1 unit of blood on admission, hemoglobin improved to 8.4 today. Monitor closely. Hold anticoagulation.
Subacute GI bleed -patient states she had hematochezia 1 to 2 weeks ago, now resolved. Gastroenterology consulted for blood loss anemia due to GI bleed, iron deficiency.
Patient needs time to contemplate EGD/colonoscopy. Last colonoscopy 2014.
Hypokalemia -improved.
Chronic leukopenia -unclear etiology. Monitor for now.
Severe aortic stenosis/severe TR
Essential hypertension -stable.
Permanent atrial fibrillation -hold Eliquis for now given presentation with acute blood loss anemia, GI bleed.
Chronic pericardial effusion -small to moderate in size.
Hyperlipidemia
SLE
DNR
Anticipated Discharge: > 48 hours
Subjective/Interval History
-
Date of Service: February 16, 2025
Patient seen and examined. No complaints.
Objective Data
-
Labs:
Laboratory Results
02/16/25
07:11
WBC 3.6 L
Hgb 8.4 L
Hct 26.3 L
Plt Count 158
Sodium 138
Potassium 3.7
Chloride 104
Carbon Dioxide 28
BUN 18 H
Creatinine 1.0
Glucose 131 H
Calcium 9.0
Vital Signs:
Vital Signs
Temp Pulse Resp BP Pulse Ox
98.4 F 58 16 131/67 96
02/16/25 07:30 02/16/25 08:07 02/16/25 07:30 02/16/25 08:08 02/16/25 07:30
I&O
02/15/25 02/16/25 02/17/25
06:59 06:59 06:59
Intake Total 250 / 250
Balance 250 / 250
Review of Systems
-
History Source: Patient
All other systems: Reviewed and negative
[2025-02-16 12:28] LABS: Folate 12.2 ng/ml (2.76-20); Vitamin B12 984 pg/ml (239-931)
[2025-02-16] MEDS: FERRLECIT 110 MG IV (14:16)
--- NOTE | 2025-02-16 14:56 | CM ---
Initial assessment completed with pt at bedside.
Pt is an 89yr old female admitted for CHF.
Pt is from [facility] where she is indep with mobility and ADLs using a RW. Pt does not cook, and gets all her meals through the Community.
Equipment Pt has includes a RW, shower chair, and commode.
Pt has no hx of SNF/VN
PCP; Duy Lester
Pharm; [facility]
PLAN; Pt would like to dc to home with no anticipated needs. SW talked about VN. Pt also interested in more information on Palliative.
--- NOTE | 2025-02-16 16:03 | PTCARENOTE ---
Pt alert and oriented x3 but forgetful at times. Denies any pain. Tolerating diet well. Pt assist x1 OOB with pt's own walker. Pt with no symptoms of bleeding. Pt with no complaints at this time. Rings approp for needs. Call boateng within reach.
[2025-02-16] MEDS: CARDURA 1 MG PO (16:57)
[2025-02-16] MEDS: PLAQUENIL 200 MG PO ×2 (16:57)
[2025-02-17 03:00] VITALS: BP 128/64
[2025-02-17 06:00] VITALS: BMI 29.3
[2025-02-17 07:24] LABS: Hematocrit 25.7 % (37.0-47.0); Hemoglobin 8.0 g/dL (12.0-16.0); Mean Corp Hgb Conc. 31.1 g/dL (33.0-37.0); Mean Corpuscular Volume 75.1 fL (81.0-99.0); Nucleated Red Blood Cells % 0 %; Platelet Count 148 10^3/uL (130-400); Red Cell Dist. Width 18.4 % (11.5-14.5)
[2025-02-17 07:30] VITALS: BP 127/93
[2025-02-17 07:58] LABS: Blood Urea Nitrogen 19 mg/dl (7-17); Calcium 8.9 mg/dl (8.4-10.2); Carbon Dioxide 27 mmol/L (22-30); Chloride 106 mmol/L (98-107); Estimated Creatinine Clearance 42 ml/min; Glucose 133 mg/dl (70-99); Potassium 3.9 mmol/L (3.5-5.1); Sodium 140 mmol/L (135-145); eGFR 54.19
--- NOTE | 2025-02-17 08:24 | W.PN.CARDCBS ---
Today's Communication / Plan
-
Continue diuresis with IV Lasix
Eliquis on hold with anemia
Remains in rate controlled A-fib
Impression / Plan
-
PCP: Dr. Lester
Yarn Dyer: Dr. YASSINE Pink
Impression:
Acute on Chronic HFpEF
severe
anemia/GI bleed
Severe tricuspid insufficiency
Severe pulmonary hypertension
Chronic LE edema/Venous insufficiency
Chronic Pericardial effusion, sm-mod
Permanent atrial fibrillation
HTN
HLD
Mild MR
Lupus
Echo 04/13/2021: EF 70%, mild MR, massive left atrial dilatation, aortic sclerosis, severe TR with severe pulmonary HTN 81-87 mmHg, moderate posterior pericardial effusion without evidence of hemodynamic compromise
Echo 07/08/2022: EF 67% massively dilated RA, dilated and hypokinetic RV, mild to moderate MR, severe TR, PAP 79 mmHg small to moderate pericardial effusion without evidence of hemodynamic compromise.� No significant change from prior echo in April
2021
ECHO 09/20/22: EF 55%, flattened septum in systole and diastole consistent with RV pressure and volume overload, thickened fibrinous material surrounding heart, suspected RV enlarged, mild MR, trace AR, severe TR, PAP 75 mmHg, small to moderate
pericardial effusion without evidence of hemodynamic compromise, pleural effusion also present
Echo 02/05/25: EF 61%, mildly dilated right ventricle with mildly reduced RV function. Severe aortic stenosis with low-flow low gradient, mean gradient 23, aortic valve area 0.8 cm�, stroke-volume index 31, severe TR with PA pressure 75, moderate
posterior pericardial effusion
Plan:
Difficult examination but appears to remain in CHF and weight is decreased 2 pounds with stable renal function
Currently on room air
Will continue IV Lasix
Eliquis on hold with anemia and hemoglobin is decreased to 8.0
Progress Note - Yarn Dyer
Subjective
Date of Service: February 17, 2025
No complaints
Objective
Labs:
02/17/25 06:38
02/17/25 06:38
Labs
Hgb 8.0 g/dL (12.0-16.0) L 02/17/25 06:38
Hct 25.7 % (37.0-47.0) L 02/17/25 06:38
Plt Count 148 10^3/uL (130-400) 02/17/25 06:38
PT 21.9 Sec (11.4-14.6) H 02/15/25 19:16
INR 1.89 02/15/25 19:16
Sodium 140 mmol/L (135-145) 02/17/25 06:38
Potassium 3.9 mmol/L (3.5-5.1) 02/17/25 06:38
BUN 19 mg/dl (7-17) H 02/17/25 06:38
Creatinine 1.0 mg/dL (0.6-1.0) 02/17/25 06:38
Glucose 133 mg/dl (70-99) H 02/17/25 06:38
Troponins
02/15/25
19:16
Troponin I < 0.012
Vital Signs and I&O:
Vital Signs
Temp Pulse Resp BP Pulse Ox
98.9 F 92 18 128/64 94
02/17/25 03:00 02/17/25 03:00 02/17/25 03:00 02/17/25 03:00 02/17/25 03:00
Vital Signs
Temp Pulse Resp BP Pulse Ox
98.9 F 92 18 128/64 94
02/17/25 03:00 02/17/25 03:00 02/17/25 03:00 02/17/25 03:00 02/17/25 03:00
Intake & Output
02/15/25 02/16/25 02/17/25 02/18/25
06:59 06:59 06:59 06:59
Intake Total 250 / 250 840 / 840
Balance 250 / 250 840 / 840
Physical Exam
Physical Exam
General: Well developed, well nourished in NAD.
Neck: Supple, no JVD, HJR, carotids +2 B/L, no bruits bilaterally.
Heart: Non displaced PMI, irregular, no murmurs, No S3, S4, no rubs.
Lungs: Scattered rhonchi
Extremities: No clubbing, cyanosis or edema bilaterally.
Neuro: Grossly nonfocal, awake, alert and oriented x3.
[2025-02-17] MEDS: VITAMIN B-12 1000 MCG PO (08:51)
[2025-02-17] MEDS: ZESTRIL 40 MG PO (08:51)
[2025-02-17] MEDS: VITAMIN D3 (cholecalciferol) 50 MCG PO ×2 (08:51→19:19)
[2025-02-17] MEDS: LASIX 40 MG IV ×2 (08:54→15:56)
[2025-02-17] MEDS: TOPROL XL 25 MG PO (08:55)
[2025-02-17] MEDS: KCL 20 MEQ PO ×2 (08:55→19:20)
--- NOTE | 2025-02-17 09:35 | W.PN.GI.CBS2 ---
Today's Communication / Plan
-
Continue diuresis. Will discuss with patient/daughter whether or not they want to proceed with EGD/Colonoscopy, earliest would be Tuesday, 02/19. Eliquis on hold
Assessment / Plan
-
Haley Puente is an 89 y.o. female with pmhx , HFpEF, severe pulm HTN, permanent afib, severe TR, HTN, SLE, venous insufficiency admitted with fatigue, symptomatic anemia and an epsiode of rectal bleeding. Hgb on admission found to be 8.4,
microcytic. Her last hemoglobin was in 2022, at which time hgb around 9-10, which appears to be her baseline but unclear when she dropped. She was seen by Dr. Thomas over the summer for rectal bleeding, found to have hemorrhoids, sclerotherapy
performed. Reports last episode of rectal bleeding was 2 weeks ago, has been having brown stool since, heme tested in the ER which was negative
Labs on admission with hbg 7.8 then rise to 8.4 after 1 unit PRBC's. Iron studies with iron deficiency(iron <20, TIBC 418 iron sat not reported, ferritin 13.8). Last hbg check 9.9 in 2022.
09/2014 Dr. Aguirre colonoscopy1) Diverticulosis of the sigmoid and ascending colon. 2) 7mm sessile polyp removed from the descending colon. adenomatous 3) Two transverse colon polyps, largest being 9mm. Both polyps were removed bx adenomatous 4)
Nodular ileocecal valve and cecum. These findings appeared to be lymphoid aggregates. Biopsies were taken with lymphoid follicles 5) Normal appearing terminal ileum. bx neg.
-microcytic JENNIFER acute on chronic with heme neg brown stool in ER
-rectal bleeding -- possible hemorrhoid related with hx sclerotherapy with CR surgery in September 2024
-acute on chronic CHF on admission
-afib on Eliquis prior to admission with recent switch from Coumadin
valvular disease (severe , severe TR
-hx adenomatous colon polyps
-hx HH
-hx B12 deficiency on supplement
Echo 02/05/25: EF 61%, mildly dilated right ventricle with mildly reduced RV function. Severe aortic stenosis with low-flow low gradient, mean gradient 23, aortic valve area 0.8 cm�, stroke-volume index 31, severe TR with PA pressure 75, moderate
posterior pericardial effusion
A/P:
Given age and comorbidities, including severe (previously declined eval for aortic valve replacement) discussed at length with both patient and daughter the risks and benefits of proceeding with EGD and Colonoscopy. There is certainly some MCI or
mild dementia in patient, she does not recall several conversations we had about this yesterday, one included her daughter. I again discussed the workup and answered all questions she had. She would like to again discuss with her daughter. I will
also reach out to her daughter
Continue IV diuresis
PPI
Trend hgb, transfuse for Hgb <8, she has received 1 unit of PRBC since admission
Last dose of eliquis 12 AM
Subjective
Subjective
Date of Service: February 17, 2025
Patient seen in follow-up. Hemoglobin 8 this morning. She is still undecided if she wants to proceed with endoscopic evaluation. She does not recall our conversation regarding this yesterday nor her daughters conversation with her about
EGD/Colonoscopy. She would like to speak with her daughter again today. She does complain of some reflux today. She is diuresing nicely, down 2 lbs.
Objective
Data Reviewed
Laboratory Data:
Laboratory Results
02/17/25 06:38
02/17/25 06:38
Laboratory Results
PT 21.9 Sec (11.4-14.6) H 02/15/25 19:16
INR 1.89 02/15/25 19:16
Magnesium 2.4 mg/dl (1.6-2.3) H 02/16/25 07:11
Total Bilirubin 0.8 mg/dl (0.2-1.3) 02/15/25 15:00
AST 26 U/L (14-36) 02/15/25 15:00
ALT 15 U/L (0-35) 02/15/25 15:00
Alkaline Phosphatase 87 U/L (38-126) 02/15/25 15:00
Vital Signs and I&O:
Vital Signs
Temp Pulse Resp BP Pulse Ox
98.5 F 84 16 127/93 95
02/17/25 07:30 02/17/25 08:55 02/17/25 07:30 02/17/25 08:55 02/17/25 07:30
I&O
02/16/25 02/17/25 02/18/25
06:59 06:59 06:59
Intake Total 250 / 250 840 / 840
Balance 250 / 250 840 / 840
Physical Exam
Physical Exam
HEENT: Anicteric and Moist mucous membranes
Cardiology: Irregular Rate/Rhythm
GI: Soft, Non Distended and Non Tender
Extremities: Edema
[2025-02-17] MEDS: NSS (PRESERVATIVE FREE) 10 ML IV ×2 (10:18→19:20)
[2025-02-17] MEDS: PROTONIX IV 40 MG IV ×2 (10:20→19:20)
--- NOTE | 2025-02-17 10:40 | W.PN.HOSP.TC ---
Today's Communication/Plan
-
Continue diuretics
Monitor hemoglobin
Await decision on EGD/colonoscopy
Assessment / Plan
Assessment / Plan
Gen-AAOx3, NAD
HEENT-NC, AT, anicteric, clear oral mm
Neck-supple
CV-reg, no M, +S1/S2
Lungs-mild rales in the bases bilaterally
Abd-soft, NT, ND
Ext-no edema
Musculoskeletal-no cyanosis, clubbing
Skin-warm and dry
Neuro-grossly non-focal
Psych-calm, cooperative
Acute on chronic heart failure with preserved EF exacerbation -continue IV Lasix. Cardiology following. BNP 1800. Admission chest x-ray shows pulmonary edema.
Acute blood loss anemia -with acute on chronic anemia. Presentation with dyspnea on exertion. Iron deficiency anemia noted on labs. Transfused 1 unit of blood on admission, hemoglobin stable at 8.0 today. Monitor closely. Hold anticoagulation.
Continue IV iron.
Subacute GI bleed -patient states she had hematochezia 1 to 2 weeks ago, now resolved. Gastroenterology consulted for blood loss anemia due to GI bleed, iron deficiency.
Patient needs time to contemplate EGD/colonoscopy. Last colonoscopy 2014.
Remains at somewhat elevated risk for GI procedures given acute heart failure exacerbation. Cardiology following.
Hypokalemia -improved.
Chronic leukopenia -unclear etiology. Monitor for now.
Severe aortic stenosis/severe TR
Essential hypertension -stable.
Permanent atrial fibrillation -hold Eliquis for now given presentation with acute blood loss anemia, GI bleed.
Chronic pericardial effusion -small to moderate in size.
Hyperlipidemia
SLE -stable.
DNR
Anticipated Discharge: 24 - 48 hours
Subjective/Interval History
-
Date of Service: February 17, 2025
Patient seen and examined, complaining of headache.
Objective Data
-
Labs:
Laboratory Results
02/17/25
06:38
WBC 4.3 L
Hgb 8.0 L
Hct 25.7 L
Plt Count 148
Sodium 140
Potassium 3.9
Chloride 106
Carbon Dioxide 27
BUN 19 H
Creatinine 1.0
Glucose 133 H
Calcium 8.9
Vital Signs:
Vital Signs
Temp Pulse Resp BP Pulse Ox
98.5 F 84 16 127/93 95
02/17/25 07:30 02/17/25 08:55 02/17/25 07:30 02/17/25 08:55 02/17/25 07:30
I&O
02/16/25 02/17/25 02/18/25
06:59 06:59 06:59
Intake Total 250 / 250 840 / 840
Balance 250 / 250 840 / 840
Review of Systems
-
History Source: Patient
All other systems: Reviewed and negative
[2025-02-17] MEDS: TYLENOL 650 MG PO (10:41)
[2025-02-17 11:30] VITALS: BP 133/55
[2025-02-17] MEDS: FERRLECIT 110 MG IV (13:17)
[2025-02-17 15:45] VITALS: BP 136/73
[2025-02-17] MEDS: PLAQUENIL 200 MG PO (17:42)
[2025-02-17] MEDS: CARDURA 1 MG PO (17:42)
[2025-02-17 19:00] VITALS: BP 127/49
[2025-02-17 23:00] VITALS: BP 142/69
[2025-02-18] VITALS (7 sets, daily range): BP systolic 109–140; BP diastolic 51–73; BMI 29.2
[2025-02-18 06:34] LABS: Hematocrit 26.5 % (37.0-47.0); Hemoglobin 8.3 g/dL (12.0-16.0); Mean Corp Hgb Conc. 31.3 g/dL (33.0-37.0); Mean Corpuscular Volume 76.4 fL (81.0-99.0); Nucleated Red Blood Cells % 0 %; Platelet Count 157 10^3/uL (130-400); Red Cell Dist. Width 18.1 % (11.5-14.5)
[2025-02-18 06:59] LABS: Blood Urea Nitrogen 18 mg/dl (7-17); Calcium 9.1 mg/dl (8.4-10.2); Carbon Dioxide 28 mmol/L (22-30); Chloride 106 mmol/L (98-107); Estimated Creatinine Clearance 42 ml/min; Glucose 144 mg/dl (70-99); Potassium 3.9 mmol/L (3.5-5.1); Sodium 139 mmol/L (135-145); eGFR 54.19
--- NOTE | 2025-02-18 07:41 | W.PN.GI.CBS2 ---
Today's Communication / Plan
-
Patient declined egd/colonoscopy, awaiting to speak with daughter. Once confirmed that procedures are cancelled, will recommencd resuming eliquis
Assessment / Plan
-
Haley Puente is an 89 y.o. female with pmhx , HFpEF, severe pulm HTN, permanent afib, severe TR, HTN, SLE, venous insufficiency admitted with fatigue, symptomatic anemia and an epsiode of rectal bleeding. Hgb on admission found to be 8.4,
microcytic. Her last hemoglobin was in 2022, at which time hgb around 9-10, which appears to be her baseline but unclear when she dropped. She was seen by Dr. Thomas over the summer for rectal bleeding, found to have hemorrhoids, sclerotherapy
performed. Reports last episode of rectal bleeding was 2 weeks ago, has been having brown stool since, heme tested in the ER which was negative
Labs on admission with hbg 7.8 then rise to 8.4 after 1 unit PRBC's. Iron studies with iron deficiency(iron <20, TIBC 418 iron sat not reported, ferritin 13.8). Last hbg check 9.9 in 2022.
09/2014 Dr. Aguirre colonoscopy1) Diverticulosis of the sigmoid and ascending colon. 2) 7mm sessile polyp removed from the descending colon. adenomatous 3) Two transverse colon polyps, largest being 9mm. Both polyps were removed bx adenomatous 4)
Nodular ileocecal valve and cecum. These findings appeared to be lymphoid aggregates. Biopsies were taken with lymphoid follicles 5) Normal appearing terminal ileum. bx neg.
-microcytic JENNIFER acute on chronic with heme neg brown stool in ER
-rectal bleeding -- possible hemorrhoid related with hx sclerotherapy with CR surgery in September 2024
-acute on chronic CHF on admission
-afib on Eliquis prior to admission with recent switch from Coumadin
valvular disease (severe , severe TR
-hx adenomatous colon polyps
-hx HH
-hx B12 deficiency on supplement
Echo 02/05/25: EF 61%, mildly dilated right ventricle with mildly reduced RV function. Severe aortic stenosis with low-flow low gradient, mean gradient 23, aortic valve area 0.8 cm�, stroke-volume index 31, severe TR with PA pressure 75, moderate
posterior pericardial effusion
A/P:
Given age and comorbidities, including severe (previously declined eval for aortic valve replacement) discussed at length with both patient and daughter the risks and benefits of proceeding with EGD and Colonoscopy. This morning, patient states
she does not want to move forward with egd/colonoscopy. I attempted to call her daughter, Marguerite to confirm this decision, she did not answer, I will try again later. I did speak with her yesterday and she had wanted to discuss with her brother
but had been leaning towards not purusing endoscopic evaluation. If she chooses not to have any procedure, she can simply monitor her Hgb and be transfused as necessary.
Once I speak with her daughter and confirm no plans for egd/colonoscopy, will recommend resuming her eliquis and monitoring hemoglobin
Subjective
Subjective
Date of Service: February 18, 2025
Patient seen in follow-up. She reports feeling well this morning, she continues to do well with diuresis. We discussed endoscopic evaluation and she states she does not want to have either procedure (egd/colonoscopy). Her hemoglobin is stable this
morning, 8.3.
Objective
Data Reviewed
Laboratory Data:
Laboratory Results
02/18/25 05:58
02/18/25 05:58
Laboratory Results
PT 21.9 Sec (11.4-14.6) H 02/15/25 19:16
INR 1.89 02/15/25 19:16
Magnesium 2.4 mg/dl (1.6-2.3) H 02/16/25 07:11
Total Bilirubin 0.8 mg/dl (0.2-1.3) 02/15/25 15:00
AST 26 U/L (14-36) 02/15/25 15:00
ALT 15 U/L (0-35) 02/15/25 15:00
Alkaline Phosphatase 87 U/L (38-126) 02/15/25 15:00
Vital Signs and I&O:
Vital Signs
Temp Pulse Resp BP Pulse Ox
97.3 F 70 16 140/73 95
02/18/25 03:00 02/18/25 03:00 02/18/25 03:00 02/18/25 03:00 02/18/25 03:00
I&O
02/17/25 02/18/25 02/19/25
06:59 06:59 06:59
Intake Total 840 / 840 960 / 960
Balance 840 / 840 960 / 960
Physical Exam
Physical Exam
HEENT: Anicteric and Moist mucous membranes
Cardiology: Irregular Rate/Rhythm
GI: Soft, Non Distended and Non Tender
Extremities: Edema
[2025-02-18] MEDS: PROTONIX IV 40 MG IV ×2 (08:10→20:44)
[2025-02-18] MEDS: LASIX 40 MG IV (08:10)
[2025-02-18] MEDS: NSS (PRESERVATIVE FREE) 10 ML IV ×2 (08:10→20:44)
[2025-02-18] MEDS: ZESTRIL 40 MG PO (08:11)
[2025-02-18] MEDS: KCL 20 MEQ PO ×2 (08:11→20:44)
[2025-02-18] MEDS: TOPROL XL 25 MG PO (08:11)
[2025-02-18] MEDS: VITAMIN B-12 1000 MCG PO (08:11)
[2025-02-18] MEDS: VITAMIN D3 (cholecalciferol) 50 MCG PO ×2 (08:11→20:44)
--- NOTE | 2025-02-18 10:41 | W.PN.UPDATE ---
Update Note
Progress Note Update
Patient's daughter called my office and confirmed they do NOT wish to pursue EGD/colonoscopy. Requesting update on when patient can be discharged.
Monitor Hgb, transfuse as needed for hemoglobin <8
GI will sign off, please call with questions
--- NOTE | 2025-02-18 11:57 | W.PN.HOSP.TC ---
Today's Communication/Plan
-
Assessment / Plan
Assessment / Plan
Acute on chronic HFpEF exacerbation
Continue IV Lasix
Monitor daily weights
Monitor urinary output
May consider SGLT2 inhibitor/MRA appreciate cardiology input
Acute blood loss anemia with chronic anemia while exacerbated by Eliquis, likely subacute from hemorrhoidal bleed
Without evidence of acute bleeding
Hemoglobin stable
Likely hemorrhoidal
Will follow-up with outpatient Dr. Thomas on 03/01/2025
Permanent atrial fibrillation
Resume Eliquis, monitor hemoglobin
Continue beta-sweetie
Severe aortic stenosis severe TR
Hypertension
Continue
SLE
Continue Plaquenil
DNR
I spoke with Bipin Marguerite Swanson over the phone today. Reviewed entire plan with her. States mom does not want a bidirectional scope. She understands that hemoglobin is stable. Would like to resume Eliquis with the understanding that if there
is bleeding or downtrend in hemoglobin to discontinue/hold indefinitely. Risk of holding Eliquis would be strokes. Verbalized full understanding.
Anticipated Discharge: 24 - 48 hours
Subjective/Interval History
-
Date of Service: February 18, 2025
Seen and examined. No new complaints. No acute overnight events.
Objective Data
-
Labs:
Laboratory Results
02/18/25
05:58
WBC 4.2 L
Hgb 8.3 L
Hct 26.5 L
Plt Count 157
Sodium 139
Potassium 3.9
Chloride 106
Carbon Dioxide 28
BUN 18 H
Creatinine 1.0
Glucose 144 H
Calcium 9.1
Vital Signs:
Vital Signs
Temp Pulse Resp BP Pulse Ox
98.3 F 60 16 109/54 100
02/18/25 07:00 02/18/25 08:10 02/18/25 07:00 02/18/25 08:10 02/18/25 07:00
I&O
02/17/25 02/18/25 02/19/25
06:59 06:59 06:59
Intake Total 840 / 840 960 / 960
Balance 840 / 840 960 / 960
Physical Exam
-
General: Well Developed, Well Nourished and No Apparent Distress
HEENT: Normocephalic and Atraumatic
Respiratory: Crackles
Cardiac: S1/S2 and Irregular Rhythm
GI: Soft, Nontender, Nondistended and Normal Bowel Sounds
Musculoskeletal: No Clubbing, No Cyanosis, Edema, Right Lower Extrem, Edema, Left Lower Extrem and Other (Bilateral lower extremity chronic venous stasis change)
Neuro: AO x 3
Psych: Calm
[2025-02-18] MEDS: FLUSH (NSS) 2 FLUSH IV (13:09)
[2025-02-18] MEDS: FERRLECIT 110 MG IV (13:09)
--- NOTE | 2025-02-18 14:00 | W.PN.CARDCBS ---
Addendum entered and electronically signed by Kandis Carter DO 02/18/25 18:12:
I saw and examined the patient.
The Machinist Linotype's note was reviewed and I agree with the note.
Comment: Patient was seen and examined sitting out of bed to chair. Overall she feels well and states that she has no plans to proceed with recommended endoscopy and colonoscopy. She denies shortness of breath or chest pain.
General: NAD, AAO x 3
Heart: Irregularly irregular. + S1S2 2/6 VALORIE
Lungs: Bronchovesicular breath sounds, scattered rhonchi. No wheeze crackles
Extremities: Trivial pedal edema
Neuro: Grossly nonfocal
Plan:
89-year-old medically complex female with multifactorial exertional dyspnea secondary to acute heart failure with preserved ejection fraction with known severe aortic stenosis and severe tricuspid regurgitation with severe pulmonary hypertension in
addition to symptomatic anemia
- She remains volume overloaded. She had been taking Lasix 40 mg 3 times daily prior to admission. Will increase Lasix to 80 mg IV twice daily today.
- Continue monitoring daily weights, I's/O's and electrolytes and renal function
- Avoid hypotension
- She has previously declined evaluation for TAVR
Symptomatic anemia on Eliquis with history of permanent atrial fibrillation
- Eliquis currently held
- Hemoglobin on admission 7.8 status post 1 unit packed red blood cells on 02/15 with hemoglobin today 8.3
- GI consulted however patient has declined further evaluation with endoscopy/colonoscopy
- Eliquis has been cautiously resumed by primary service however if hemoglobin drops would discontinue
DNR status noted
Original Note:
Today's Communication / Plan
-
Patient has declined GI evaluation and Eliquis remains on hold with known permanent A-fib
Increase Lasix to 80 mg IV BID, orders placed by me
Impression / Plan
-
PCP: Dr. Lester
Dat Instructor: Dr. YASSINE Pink
Impression:
Admitted with multifactorial exertional dyspnea 02/15/2025
Acute on Chronic HFpEF
Severe
Anemia/GI bleed
Severe tricuspid insufficiency
Severe pulmonary hypertension
Chronic LE edema/Venous insufficiency
Chronic Pericardial effusion, sm-mod
Permanent atrial fibrillation
Chronic Eliquis OAC
HTN
HLD
Mild MR
Lupus
Echo 04/13/2021: EF 70%, mild MR, massive left atrial dilatation, aortic sclerosis, severe TR with severe pulmonary HTN 81-87 mmHg, moderate posterior pericardial effusion without evidence of hemodynamic compromise
Echo 07/08/2022: EF 67% massively dilated RA, dilated and hypokinetic RV, mild to moderate MR, severe TR, PAP 79 mmHg small to moderate pericardial effusion without evidence of hemodynamic compromise.� No significant change from prior echo in April
2021
ECHO 09/20/22: EF 55%, flattened septum in systole and diastole consistent with RV pressure and volume overload, thickened fibrinous material surrounding heart, suspected RV enlarged, mild MR, trace AR, severe TR, PAP 75 mmHg, small to moderate
pericardial effusion without evidence of hemodynamic compromise, pleural effusion also present
Echo 02/05/25: EF 61%, mildly dilated right ventricle with mildly reduced RV function. Severe aortic stenosis with low-flow low gradient, mean gradient 23, aortic valve area 0.8 cm�, stroke-volume index 31, severe TR with PA pressure 75, moderate
posterior pericardial effusion
Plan:
-Patient was admitted with multifactorial exertional dyspnea on 02/15/2025 and cardiology was consulted for acute HF and severe /TR and severe pulmonary HTN.
-Weight is down to 180 lbs on my review of VS 02/18/2025. Weight on admission was 183 lbs. Patient is below any previous dry weight we have on record.
-Patient is diuresing with Lasix 40 mg IV BID. Patient was taking Lasix 40 mg TID prior to admission. Increase Lasix to 80 mg IV BID starting 02/18/2025 PM, orders placed by cardiology.
-Cre stable at 1.0 on my review of labs 02/18/2025
-EF 61% by echo 02/05/2025. There is also evidence of low-flow low gradient severe with a mean gradient of 23 mmHg and a valve area of 0.8 cm sq and severe TR. Patient has previously declined evaluation for TAVR.
-Outpatient dose of benazepril 40 mg daily has been continued in the form of lisinopril 40 mg daily due to formulary changes within the hospital
-Outpatient dose of Toprol XL 25 mg daily has been continued
-Patient has known permanent A-fib and HR controlled with Toprol-XL 25 mg daily
-Outpatient dose of Eliquis 5 mg BID (age 89, Cre 1.0, wt 81.96 kg) was initially continued on admission, but last dose was 02/16/2025. Eliquis is now on hold due to anemia.
-Hgb as low as 7.8 on admission. Patient was given 1 unit PRBCs on 02/15/2025. Patient was seen in consultation by GI and has opted not to have eEndo/colon. GI has signed off
-Patient has SLE and her outpatient dose of hydroxychloroquine 200 mg qPM has been continued
-Outpatient dose of Cardura 1 mg daily has been continued, BP controlled on my review of VS 02/18/2025
HPI: 89-year-old female with past medical history of aortic stenosis, chronic heart failure with preserved ejection fraction, severe pulmonary pretension, permanent atrial fibrillation, severe tricuspid regurgitation, hypertension, lupus, and venous
insufficiency presents with fatigue, malaise, and anemia. She has had increased weight gain recently as an outpatient. She has had increased shortness of breath. She was found to have anemia with hemoglobin of 7.8. She denies any chest pains.
Her weight and symptoms have slowly progressed. She has no coughing or wheezing. She has noticed some black stool and some bleeding. In February 2025 she was recently switched from Coumadin to Eliquis. She feels no palpitations or syncope. She
has declined evaluation for transcatheter aortic valve replacement. She has no recent falls.
Progress Note - Dat Instructor
Subjective
Date of Service: February 18, 2025
Patient reports she is not interested in GI evaluation. Denies SOB.
Objective
Labs:
02/18/25 05:58
02/18/25 05:58
Labs
Hgb 8.3 g/dL (12.0-16.0) L 02/18/25 05:58
Hct 26.5 % (37.0-47.0) L 02/18/25 05:58
Plt Count 157 10^3/uL (130-400) 02/18/25 05:58
PT 21.9 Sec (11.4-14.6) H 02/15/25 19:16
INR 1.89 02/15/25 19:16
Sodium 139 mmol/L (135-145) 02/18/25 05:58
Potassium 3.9 mmol/L (3.5-5.1) 02/18/25 05:58
BUN 18 mg/dl (7-17) H 02/18/25 05:58
Creatinine 1.0 mg/dL (0.6-1.0) 02/18/25 05:58
Glucose 144 mg/dl (70-99) H 02/18/25 05:58
Troponins
02/15/25
19:16
Troponin I < 0.012
Vital Signs and I&O:
Vital Signs
Temp Pulse Resp BP Pulse Ox
98.5 F 61 16 117/54 97
02/18/25 11:00 02/18/25 11:00 02/18/25 11:00 02/18/25 11:00 02/18/25 11:00
Vital Signs
Temp Pulse Resp BP Pulse Ox
98.5 F 61 16 117/54 97
02/18/25 11:00 02/18/25 11:00 02/18/25 11:00 02/18/25 11:00 02/18/25 11:00
Intake & Output
02/16/25 02/17/25 02/18/25 02/19/25
06:59 06:59 06:59 06:59
Intake Total 250 / 250 840 / 840 960 / 960
Balance 250 / 250 840 / 840 960 / 960
Physical Exam
Physical Exam
General: NAD, AAO x 3
Heart: Afib on telemetry. Irregular, no murmurs
Lungs: RA. Scattered rhonchi
Extremities: No edema B/L LE
Neuro: Grossly nonfocal
[2025-02-18] MEDS: LASIX 80 MG IV (16:02)
[2025-02-18] MEDS: CARDURA 1 MG PO (17:22)
[2025-02-18] MEDS: PLAQUENIL 200 MG PO (17:23)
[2025-02-18] MEDS: ELIQUIS 5 MG PO (20:44)
[2025-02-19] VITALS (7 sets, daily range): BP systolic 104–142; BP diastolic 49–61; PULSE 70; O2SAT 95; BMI 28.5
[2025-02-19] MEDS: ELIQUIS 5 MG PO ×2 (07:30→22:38)
[2025-02-19] MEDS: KCL 20 MEQ PO ×2 (07:30→22:38)
[2025-02-19] MEDS: LASIX 80 MG IV (07:31)
[2025-02-19] MEDS: TOPROL XL 25 MG PO (07:31)
[2025-02-19] MEDS: ZESTRIL 40 MG PO (07:31)
[2025-02-19] MEDS: VITAMIN D3 (cholecalciferol) 50 MCG PO ×2 (07:31→22:38)
[2025-02-19] MEDS: VITAMIN B-12 1000 MCG PO (07:31)
[2025-02-19] MEDS: NSS (PRESERVATIVE FREE) 10 ML IV (07:35)
[2025-02-19] MEDS: PROTONIX IV 40 MG IV (07:36)
[2025-02-19 09:39] LABS: Blood Urea Nitrogen 18 mg/dl (7-17); Calcium 9.5 mg/dl (8.4-10.2); Carbon Dioxide 30 mmol/L (22-30); Chloride 104 mmol/L (98-107); Estimated Creatinine Clearance 35 ml/min; Glucose 144 mg/dl (70-99); Potassium 4.1 mmol/L (3.5-5.1); Sodium 141 mmol/L (135-145); eGFR 43.54
--- NOTE | 2025-02-19 12:36 | W.PN.HOSP.TC ---
Today's Communication/Plan
-
Assessment / Plan
Assessment / Plan
General: Well Developed, Well Nourished and No Apparent Distress
HEENT: Normocephalic and Atraumatic
Respiratory: Crackles
Cardiac: S1/S2 with a grade 2/6 VALORIE rusb and Irregular Rhythm
GI: Soft, Nontender, Nondistended and Normal Bowel Sounds
Musculoskeletal: No Clubbing, No Cyanosis, Edema, Right Lower Extrem, Edema, Left Lower Extrem and Other (Bilateral lower extremity chronic venous stasis change)
Neuro: AO x 3
Psych: Calm
Acute on chronic HFpEF exacerbation
Continue IV Lasix
Monitor daily weights
Monitor urinary output
May consider SGLT2 inhibitor/MRA appreciate cardiology input
Acute blood loss anemia with chronic anemia while exacerbated by Eliquis, likely subacute from hemorrhoidal bleed
Without evidence of acute bleeding
Hemoglobin stable
Likely hemorrhoidal
Will follow-up with outpatient Dr. Thomas on 03/01/2025
Permanent atrial fibrillation
Resume Eliquis, monitor hemoglobin
- Repeat CBC in the a.m.
Continue beta-sweetie
Severe aortic stenosis severe TR
Declined to eval for TAVR
Hypertension
Continue
SLE
Continue Plaquenil
DNR
Anticipated Discharge: 24 - 48 hours
Subjective/Interval History
-
Date of Service: February 19, 2025
Seen and examined. No new complaints. No acute overnight events.
Continues to remain comfortable in bed
Still has lower extremity edema though comfortable admitting and making a new hat for a 7-year-old in bed that she tends to donate these at.
Objective Data
-
Labs:
Laboratory Results
02/19/25
09:11
Sodium 141
Potassium 4.1
Chloride 104
Carbon Dioxide 30
BUN 18 H
Creatinine 1.2 H
Glucose 144 H
Calcium 9.5
Vital Signs:
Vital Signs
Temp Pulse Resp BP Pulse Ox
97.7 F 58 16 115/52 96
02/19/25 11:40 02/19/25 11:40 02/19/25 11:40 02/19/25 11:40 02/19/25 11:40
I&O
02/18/25 02/19/25 02/20/25
06:59 06:59 06:59
Intake Total 960 / 960 1250 / 1250
Balance 960 / 960 1250 / 1250
[2025-02-19] MEDS: FERRLECIT 110 MG IV (13:05)
--- NOTE | 2025-02-19 14:22 | CM ---
spoke with Jenna from [facility] ([phone])
Await PT/OT eval
per Jenna if home health is rec they use [facility]
PLAN: Await PT/OT eval, CM to continue to follow for needs
--- NOTE | 2025-02-19 15:12 | W.PN.CARDCBS ---
Addendum entered and electronically signed by Agustin Starks MD 02/19/25 15:26:
I saw and examined the patient.
The Health Professional's note was reviewed and I agree with the note.
Comment:
GEN: No distress, awake, Ox3
HEENT: supple, anicteric, mmm
LUNGS: scatt rhonchi
CV: Reg, S1/S2, 1/6 syst LSB, S3+
ABD: soft, BS+, NT/ND
EXT: No edema
NEURO: Gross non-focal
SKIN: No rash
Plan:
Overall doing better and back on anticoagulation. Has diuresed fairly well. Weight down to 176. Decreasing Lasix back to 40 mg IV twice daily.
Creatinine up to 1.2. Likely transition to oral diuretics in AM.
Hemoglobin overall stable back on Eliquis. Hemoglobin back to 8.3.
Original Note:
Today's Communication / Plan
-
Add Surgigrip stockings for ongoing edema, latex allergy noted
Decrease Lasix back to 40 mg IV BID
Impression / Plan
-
PCP: Dr. Lester
Laborer Plumbing: Dr. YASSINE Pink
Impression:
Admitted with multifactorial exertional dyspnea 02/15/2025
Acute on Chronic HFpEF
Severe
Anemia/GI bleed
Severe tricuspid insufficiency
Severe pulmonary hypertension
Chronic LE edema/Venous insufficiency
Chronic Pericardial effusion, sm-mod
Permanent atrial fibrillation
Chronic Eliquis OAC
HTN
HLD
Mild MR
Lupus
Echo 04/13/2021: EF 70%, mild MR, massive left atrial dilatation, aortic sclerosis, severe TR with severe pulmonary HTN 81-87 mmHg, moderate posterior pericardial effusion without evidence of hemodynamic compromise
Echo 07/08/2022: EF 67% massively dilated RA, dilated and hypokinetic RV, mild to moderate MR, severe TR, PAP 79 mmHg small to moderate pericardial effusion without evidence of hemodynamic compromise.� No significant change from prior echo in April
2021
ECHO 09/20/22: EF 55%, flattened septum in systole and diastole consistent with RV pressure and volume overload, thickened fibrinous material surrounding heart, suspected RV enlarged, mild MR, trace AR, severe TR, PAP 75 mmHg, small to moderate
pericardial effusion without evidence of hemodynamic compromise, pleural effusion also present
Echo 02/05/25: EF 61%, mildly dilated right ventricle with mildly reduced RV function. Severe aortic stenosis with low-flow low gradient, mean gradient 23, aortic valve area 0.8 cm�, stroke-volume index 31, severe TR with PA pressure 75, moderate
posterior pericardial effusion
Plan:
-Patient was admitted with multifactorial exertional dyspnea on 02/15/2025 and cardiology was consulted for acute HF and severe /TR and severe pulmonary HTN.
-Weight is down to 176 lbs on my review of VS 02/19/2025. Weight on admission was 183 lbs. Patient is below any previous dry weight we have on record.
-Cre increased to 1.2 on my review of labs 02/19/2025. Lasix was increased to 80 mg IV BID on 02/18/2025, we will hold the dose of Lasix 80 mg IV for the afternoon of 02/19/2025 and then resume previous dose of Lasix 40 mg IV BID starting 02/20/2025
AM, orders placed by me
-Will add B/L LE Surgigrip stockings to help with edema
-EF 61% by echo 02/05/2025. There is also evidence of low-flow low gradient severe with a mean gradient of 23 mmHg and a valve area of 0.8 cm sq and severe TR. Patient has previously declined evaluation for TAVR.
-Outpatient dose of benazepril 40 mg daily changed to lisinopril 40 mg daily due to formulary changes within the hospital, but now on hold due to LEANDRA as of 02/19/2025
-Outpatient dose of Toprol XL 25 mg daily has been continued
-Patient has known permanent A-fib and HR controlled with Toprol-XL 25 mg daily
-Outpatient dose of Eliquis 5 mg BID (age 89, Cre 1.0, wt 81.96 kg) was briefly held due to anemia, but then resumed on 02/18/2025 PM
-Hgb as low as 7.8 on admission. Patient was given 1 unit PRBCs on 02/15/2025. Patient was seen in consultation by GI and has opted not to have endo/colon. GI has signed off
-Patient has SLE and her outpatient dose of hydroxychloroquine 200 mg qPM has been continued
-Outpatient dose of Cardura 1 mg daily has been continued, BP controlled on my review of VS 02/18/2025
HPI: 89-year-old female with past medical history of aortic stenosis, chronic heart failure with preserved ejection fraction, severe pulmonary pretension, permanent atrial fibrillation, severe tricuspid regurgitation, hypertension, lupus, and venous
insufficiency presents with fatigue, malaise, and anemia. She has had increased weight gain recently as an outpatient. She has had increased shortness of breath. She was found to have anemia with hemoglobin of 7.8. She denies any chest pains.
Her weight and symptoms have slowly progressed. She has no coughing or wheezing. She has noticed some black stool and some bleeding. In February 2025 she was recently switched from Coumadin to Eliquis. She feels no palpitations or syncope. She
has declined evaluation for transcatheter aortic valve replacement. She has no recent falls.
Progress Note - Laborer Plumbing
Subjective
Date of Service: February 19, 2025
Ongoing LE edema, denies SOB
Objective
Labs:
02/18/25 05:58
02/19/25 09:11
Labs
Hgb 8.3 g/dL (12.0-16.0) L 02/18/25 05:58
Hct 26.5 % (37.0-47.0) L 02/18/25 05:58
Plt Count 157 10^3/uL (130-400) 02/18/25 05:58
PT 21.9 Sec (11.4-14.6) H 02/15/25 19:16
INR 1.89 02/15/25 19:16
Sodium 141 mmol/L (135-145) 02/19/25 09:11
Potassium 4.1 mmol/L (3.5-5.1) 02/19/25 09:11
BUN 18 mg/dl (7-17) H 02/19/25 09:11
Creatinine 1.2 mg/dL (0.6-1.0) H 02/19/25 09:11
Glucose 144 mg/dl (70-99) H 02/19/25 09:11
Vital Signs and I&O:
Vital Signs
Temp Pulse Resp BP Pulse Ox
97.7 F 58 16 115/52 96
02/19/25 11:40 02/19/25 11:40 02/19/25 11:40 02/19/25 11:40 02/19/25 11:40
Vital Signs
Temp Pulse Resp BP Pulse Ox
97.7 F 58 16 115/52 96
02/19/25 11:40 02/19/25 11:40 02/19/25 11:40 02/19/25 11:40 02/19/25 11:40
Intake & Output
02/17/25 02/18/25 02/19/25 02/20/25
06:59 06:59 06:59 06:59
Intake Total 840 / 840 960 / 960 1250 / 1250
Balance 840 / 840 960 / 960 1250 / 1250
Physical Exam
Physical Exam
General: NAD, AAO x 3
Heart: Afib on telemetry. Irregular, no murmurs
Lungs: RA. Scattered rhonchi
Extremities: +1 edema B/L LE
Neuro: Grossly nonfocal
[2025-02-19] MEDS: LASIX 40 MG IV (16:18)
[2025-02-19] MEDS: PLAQUENIL 200 MG PO (17:17)
[2025-02-19] MEDS: CARDURA 1 MG PO (17:17)
[2025-02-19] MEDS: NSS (PRESERVATIVE FREE) IV (22:37)
[2025-02-19] MEDS: PROTONIX 40 MG PO (22:38)
[2025-02-20 03:00] VITALS: BP 128/56
[2025-02-20 06:00] VITALS: BMI 28.0
[2025-02-20 06:19] LABS: Hematocrit 26.1 % (37.0-47.0); Hemoglobin 8.0 g/dL (12.0-16.0); Mean Corp Hgb Conc. 30.7 g/dL (33.0-37.0); Mean Corpuscular Volume 76.5 fL (81.0-99.0); Platelet Count 149 10^3/uL (130-400); Red Cell Dist. Width 18.4 % (11.5-14.5)
[2025-02-20 07:02] LABS: Blood Urea Nitrogen 21 mg/dl (7-17); Calcium 9.0 mg/dl (8.4-10.2); Carbon Dioxide 30 mmol/L (22-30); Chloride 103 mmol/L (98-107); Estimated Creatinine Clearance 32 ml/min; Glucose 150 mg/dl (70-99); Potassium 4.0 mmol/L (3.5-5.1); Sodium 140 mmol/L (135-145); eGFR 39.55
[2025-02-20 07:04] VITALS: BP 121/52
[2025-02-20] MEDS: VITAMIN B-12 1000 MCG PO (08:12)
[2025-02-20] MEDS: KCL 20 MEQ PO (08:13)
[2025-02-20] MEDS: TOPROL XL 25 MG PO (08:13)
[2025-02-20] MEDS: PROTONIX 40 MG PO (08:13)
[2025-02-20] MEDS: VITAMIN D3 (cholecalciferol) 50 MCG PO (08:13)
[2025-02-20] MEDS: ELIQUIS 5 MG PO (08:13)
[2025-02-20] MEDS: NSS (PRESERVATIVE FREE) IV (08:17)
[2025-02-20] MEDS: LASIX IV (08:42)
--- NOTE | 2025-02-20 09:37 | W.PN.CARDCBS ---
Today's Communication / Plan
-
Has diuresed well. Creatinine up to 1.3. Will hold Lasix. Continue to hold lisinopril.
Hemoglobin overall stable at 8.0. Back on Eliquis. A-fib remains rate controlled.
From a cardiac standpoint weight is much improved.
Would be reasonable to consider discharge over next 24 hours.
Would resume Lasix 40 mg p.o. twice daily as outpatient and will arrange cardiac follow-up.
Impression / Plan
-
PCP: Dr. Lester
Underground Drill Operator: Dr. YASSINE Pink
Impression:
Admitted with multifactorial exertional dyspnea 02/15/2025
Acute on Chronic HFpEF
Severe
Anemia/GI bleed
Severe tricuspid insufficiency
Severe pulmonary hypertension
Chronic LE edema/Venous insufficiency
Chronic Pericardial effusion, sm-mod
Permanent atrial fibrillation
Chronic Eliquis OAC
HTN
HLD
Mild MR
Lupus
Echo 04/13/2021: EF 70%, mild MR, massive left atrial dilatation, aortic sclerosis, severe TR with severe pulmonary HTN 81-87 mmHg, moderate posterior pericardial effusion without evidence of hemodynamic compromise
Echo 07/08/2022: EF 67% massively dilated RA, dilated and hypokinetic RV, mild to moderate MR, severe TR, PAP 79 mmHg small to moderate pericardial effusion without evidence of hemodynamic compromise.� No significant change from prior echo in April
2021
ECHO 09/20/22: EF 55%, flattened septum in systole and diastole consistent with RV pressure and volume overload, thickened fibrinous material surrounding heart, suspected RV enlarged, mild MR, trace AR, severe TR, PAP 75 mmHg, small to moderate
pericardial effusion without evidence of hemodynamic compromise, pleural effusion also present
Echo 02/05/25: EF 61%, mildly dilated right ventricle with mildly reduced RV function. Severe aortic stenosis with low-flow low gradient, mean gradient 23, aortic valve area 0.8 cm�, stroke-volume index 31, severe TR with PA pressure 75, moderate
posterior pericardial effusion
Plan:
-Patient was admitted with multifactorial exertional dyspnea on 02/15/2025 and cardiology was consulted for acute HF and severe /TR and severe pulmonary HTN.
-Weight is down to 173 Weight on admission was 183 lbs. Patient is below any previous dry weight we have on record.
-Cre increased to 1.3. Hold off on Lasix for today. Would restart oral Lasix 40 mg p.o. twice daily as outpatient.
-Will add B/L LE Surgigrip stockings to help with edema
-EF 61% by echo 02/05/2025. There is also evidence of low-flow low gradient severe with a mean gradient of 23 mmHg and a valve area of 0.8 cm sq and severe TR. Patient has previously declined evaluation for TAVR.
-Outpatient dose of benazepril 40 mg daily changed to lisinopril 40 mg daily due to formulary changes within the hospital, but now on hold due to LEANDRA as of 02/19/2025
-Outpatient dose of Toprol XL 25 mg daily has been continued
-Patient has known permanent A-fib and HR controlled with Toprol-XL 25 mg daily
-Outpatient dose of Eliquis 5 mg BID (age 89, Cre 1.0, wt 81.96 kg) was briefly held due to anemia, but then resumed on 02/18/2025 PM
-Hgb as low as 7.8 on admission. Patient was given 1 unit PRBCs on 02/15/2025. Patient was seen in consultation by GI and has opted not to have endo/colon. GI has signed off
-Patient has SLE and her outpatient dose of hydroxychloroquine 200 mg qPM has been continued
-Outpatient dose of Cardura 1 mg daily has been continued, BP controlled on my review of VS 02/18/2025
HPI: 89-year-old female with past medical history of aortic stenosis, chronic heart failure with preserved ejection fraction, severe pulmonary pretension, permanent atrial fibrillation, severe tricuspid regurgitation, hypertension, lupus, and venous
insufficiency presents with fatigue, malaise, and anemia. She has had increased weight gain recently as an outpatient. She has had increased shortness of breath. She was found to have anemia with hemoglobin of 7.8. She denies any chest pains.
Her weight and symptoms have slowly progressed. She has no coughing or wheezing. She has noticed some black stool and some bleeding. In February 2025 she was recently switched from Coumadin to Eliquis. She feels no palpitations or syncope. She
has declined evaluation for transcatheter aortic valve replacement. She has no recent falls.
Progress Note - Underground Drill Operator
Subjective
Date of Service: February 20, 2025
feels well. No bleeding
Objective
Labs:
02/20/25 05:53
02/20/25 05:53
Labs
Hgb 8.0 g/dL (12.0-16.0) L 02/20/25 05:53
Hct 26.1 % (37.0-47.0) L 02/20/25 05:53
Plt Count 149 10^3/uL (130-400) 02/20/25 05:53
PT 21.9 Sec (11.4-14.6) H 02/15/25 19:16
INR 1.89 02/15/25 19:16
Sodium 140 mmol/L (135-145) 02/20/25 05:53
Potassium 4.0 mmol/L (3.5-5.1) 02/20/25 05:53
BUN 21 mg/dl (7-17) H 02/20/25 05:53
Creatinine 1.3 mg/dL (0.6-1.0) H 02/20/25 05:53
Glucose 150 mg/dl (70-99) H 02/20/25 05:53
Vital Signs and I&O:
Vital Signs
Temp Pulse Resp BP Pulse Ox
98.5 F 60 18 121/52 95
02/20/25 07:04 02/20/25 07:04 02/20/25 07:04 02/20/25 07:04 02/20/25 07:04
Vital Signs
Temp Pulse Resp BP Pulse Ox
98.5 F 60 18 121/52 95
02/20/25 07:04 02/20/25 07:04 02/20/25 07:04 02/20/25 07:04 02/20/25 07:04
Intake & Output
02/18/25 02/19/25 02/20/25 02/21/25
06:59 06:59 06:59 06:59
Intake Total 960 / 960 1250 / 1250 660 / 660 480 / 480
Balance 960 / 960 1250 / 1250 660 / 660 480 / 480
Physical Exam
Physical Exam
GEN: No distress, awake, Ox3
HEENT: supple, anicteric, mmm
LUNGS: CTA, no wheezes/rales
CV: irreg, S1/S2, 2/6 syst LSB, no gallop
ABD: soft, BS+, NT/ND
EXT: No edema
NEURO: Gross non-focal
SKIN: No rash
[2025-02-20 11:05] VITALS: BP 125/56
--- NOTE | 2025-02-20 12:28 | W.DCSUMMARY ---
Addendum entered and electronically signed by Nolan Vela MD 02/22/25 15:49:
ckd [id number]
Addendum entered and electronically signed by Nolan Vela MD 02/21/25 15:00:
Abnormal lab value clinically insignificant
Original Note:
Discharge Summary
Discharge Data
Date of Admission: 02/15/25
Date of Discharge: 02/20/25
-
Pending Results: No
Hospital Course
89yoF with a history of CHF, aortic stenosis, atrial fibrillation, hypertension, hyperlipidemia
Presented with fatigue and anemia on recent laboratory studies as an outpatient along with a 20 pound weight gain while at recent cardiology office. Was treated for heart failure exacerbation. Was transfused 1 unit of PRBCs and that emergency
department and started on IV diuretics. Evaluated by gastroenterology offered EGD colonoscopy however declined these studies. GI further recommended to resume Eliquis as there was no planned procedures and hemoglobin remained stable. Though,
gastroenterology suspected likely bleeding hemorrhoidal that was related to history of sclerotherapy with colorectal surgery in September 2024.
In terms of the heart failure was treated with IV diuretics evaluated by cardiology, IV diuretics, and declined TAVR.
2D Echo
SUMMARY
1. Normal left ventricle size and funtion without wall motion abnormalities.
2. Mildly dilated right ventricle with mildly reduced function.
3. Severe low flow low gradient severe aortic valve stenosis (PG 42.5, MG 23, DVI 0.2-3, SVI 31, area 0.8 cm2.
4. Mild mitral regurgitation.
5. Severe tricuspid regurgitation. Severe pulmonary hypertension with PASP 75 mmHg.
6. Moderate loculated posterior pericardial effusion.
7. Compared to a prior transthoracic echocardiogram study from 05/02/24 no significant changes are seen.
CXR
IMPRESSION:
Congestive heart failure.
Seen and examined the day of discharge which was .
No new complaints. No acute overnight events. Feels significantly better
NAD
Scleral Anicteric
MMM
No JVD
CTABL
RRR, S1/S2
Soft, NT, ND, BS+
Warm, Dry
Bilateral lower extremity edema however nonpitting, likely related to chronic venous stasis changes. Continue compression stockings
AAOx3
Calm
More than 30 minutes spent in discharge including
Final examination of the patient
Summarizing hospital stay
Instructions for continuing care to all relevant caregivers
Preparation of discharge records, prescriptions, and referral forms
Total time spent (in minutes): 33mins
Discharge Plan
-
Patient Disposition: Home (Routine Discharge)
Discharge Diagnosis/Procedures: Heart Failure
Condition: Good
Diet: As tolerated, Low Cholesterol, Low Sodium, No added salt and Restrict fluids to 48 oz
Activity: As tolerated
Activity Restrictions/Additional Instructions:
Presented with fatigue and anemia on recent laboratory studies as an outpatient along with a 20 pound weight gain while at recent cardiology office. Was treated for heart failure exacerbation. Was transfused 1 unit of PRBCs and that emergency
department and started on IV diuretics. Evaluated by gastroenterology offered EGD colonoscopy however declined these studies. GI further recommended to resume Eliquis as there was no planned procedures and hemoglobin remained stable. Though,
gastroenterology suspected likely bleeding hemorrhoidal that was related to history of sclerotherapy with colorectal surgery in September 2024.
In terms of the heart failure was treated with IV diuretics evaluated by cardiology, IV diuretics, and declined TAVR.
2D Echo
SUMMARY
1. Normal left ventricle size and funtion without wall motion abnormalities.
2. Mildly dilated right ventricle with mildly reduced function.
3. Severe low flow low gradient severe aortic valve stenosis (PG 42.5, MG 23, DVI 0.2-3, SVI 31, area 0.8 cm2.
4. Mild mitral regurgitation.
5. Severe tricuspid regurgitation. Severe pulmonary hypertension with PASP 75 mmHg.
6. Moderate loculated posterior pericardial effusion.
7. Compared to a prior transthoracic echocardiogram study from 05/02/24 no significant changes are seen.
CXR
IMPRESSION:
Congestive heart failure.
Instructions: *[facility] Heart Failure Instructions
Referrals:
Duy Lester DO [Family Provider, Family Practice]
Estela Marinelli DO [Active, Gastroenterology]
Jaziel Pink MD [Active, Cardiology] - in one to two weeks
Prescriptions:
New
pantoprazole 40 mg Tablet,Delayed Release (Dr/Ec)
40 mg PO BID Qty: 60 0RF
furosemide [Lasix] 40 mg tablet
40 mg PO BID Qty: 60 0RF
Continued
potassium chloride [Klor-Con M20] 20 MEQ tablet,ER particles/crystals
20 meq PO BID Qty: 0
hydroxychloroquine 200 MG tablet
200 mg PO QPM
flaxseed oil 1,000 MG capsule
1 tab PO BID
TheraTears 1 EACH dropperette
1 drp BOTH EYES BID
multivitamin with folic acid [Tab-A-Norma] 1 TABLET tablet
1 tab PO DAILY
doxazosin 1 mg Tablet
1 mg PO QPM
cyanocobalamin (vitamin B-12) 1,000 mcg Tablet
1,000 mcg PO DAILY
calcium carbonate [Calcium 600] 600 mg calcium (1,500 mg) Tablet
600 mg PO DAILY
cholecalciferol (vitamin D3) [Vitamin D3] 25 mcg (1,000 unit) Tablet
50 mcg PO BID
metoprolol succinate [Toprol XL] 25 mg Tablet Extended Release 24 Hr
25 mg PO DAILY
Eliquis 5 mg Tablet
5 mg PO BID
acetaminophen [Pain Relief ES (acetaminophen)] 500 mg tablet
500 mg PO TID
benazepril 40 mg tablet
40 mg PO DAILY
Discontinued
furosemide [Lasix] 40 mg tablet
80 mg PO DAILY@1600
furosemide [Lasix] 20 mg tablet
40 mg PO DAILY
Discharge Orders:
Discharge Patient (As Directed); Ordered 02/20/25
Ordered By: Nolan Vela
Discharge Date and Time
Print Language: URDU
--- NOTE | 2025-02-20 12:51 | CM ---
Cm following for discharge to [facility].
Therapy has evaluated and per their evaluation, patient has no needs at this time.
Patient's daughter will provide transport home.
Plan: Discharge to [facility] with no needs.
--- NOTE | 2025-02-20 13:13 | CM ---
Haley is cleared for discharge back to her Independent living facility at [facility]. Haley's daughter will drive her home.
IMM reviewed and signed; patient provided with a copy.
Plan: Discharge home with no identified needs.
[2025-02-20 13:55] VITALS: BP 141/70
--- NOTE | 2025-02-21 08:52 | PN.CDI ---
CDI
- -
CDI:
Physician Documentation Request
Admit Date: 02/15/25 22:50
Dear Doctor Dane,
Patient admitted with heart failure exacerbation. IV Lasix administered.
02/20 cardiology notes 'Creatinine up to 1.3. Will hold Lasix. '
Creatinine :
Laboratory Tests
02/18/25 02/19/25 02/20/25
05:58 09:11 05:53
Creatinine 1.0 1.2 H 1.3 H
Could you please provide a diagnosis that supports the above lab abnormalities and additional evaluation/ monitoring:
LEANDRA
Abnormal lab value clinically insignificant
Other- please specify
Criteria for LEANDRA*
1 Increase in serum creatinine by > or = to 0.3 mg/dL (> or = to 26.5 micromol/L) within 48 hours, OR
2 Increase in serum creatinine to > or = to 1.5 times baseline, which is known or presumed to have occurred within 7 days, OR
3 Urine volume < 0.5 nL/kg/hour for six hours
Use of terms such as suspected, likely, concern for, or probable (associated with a specific diagnosis that is being evaluated, monitored, or treated as if it exists) are acceptable and can be coded in the inpatient setting, when documented at the
time of discharge.
Thank you,
Krystin Dickens RN, BSN
CDI Specialist
tiger text
Please use your independent medical judgment in providing your response.
--- NOTE | 2025-02-21 10:45 | W.HF.CON ---
Heart Failure
- LV Function
Left ventricular function study result: LV Ejection fraction >/= 50%
Ejection Fraction Percentage: 61
- ARNI
Patient already on ARNI: No
Heart Failure ARNI Not Indicated: LV Ejection Fraction >/= 40%
- ACEI/ARB
Patient already on ACEI/ARB: Yes
- Beta Zainab
Patient already on Evidence Based Beta Zainab: Yes
- Mineralocorticord Receptor Antagonist
Patient already on MRA: No
Heart Failure MRA Not Indicated: LV Ejection Fraction > 40%
- SGLT-2 Inhibitor
Patient already on SGLT-2 Inhibitor: No
Heart Failure SGLT-2 Inhibitor Not Indicated: LV Ejection Fraction >40%
- Afib Anticoagulation
Patient already on Anticoagulation for Afib: Yes
- NYHA CHF Classification
NYHA CHF Classification Level: Class III - Symptoms w/ min exertion, interferes w/ nml daily activity
- ACC/AHA Stage
ACC/AHA Stage: Stage C: Symptomatic Heart Failure
--- NOTE | 2025-02-22 10:55 | PN.CDI ---
CDI
- -
CDI:
Physician Documentation Request
Admit Date: 02/15/25 22:50
Dear Doctor Dane,
The diagnosis of CKD was included in the GI consultation .
eGFR results:
Laboratory Tests
02/15/25 02/16/25 02/17/25
15:00 07:11 06:38
eGFR 54.19 54.19 54.19
02/18/25 02/19/25 02/20/25
05:58 09:11 05:53
eGFR 54.19 43.54 39.55
Please indicate in your progress notes if you are in agreement that the above diagnosis is valid for this patient:
____ - CKD is a valid diagnosis (Please include stage)
____ - CKD is not a valid diagnosis for this patient
____ - Other
Stages of Chronic Kidney Disease*
Level Description GFR
G1 Normal or High >90
G2 Mildly decreased 60-89
G3a Mildly to moderately decreased 45-59
G3b Moderately to severely decreased 30-44
G4 Severely decreased 15-29
G5 Kidney failure <15
Use of terms such as suspected, likely, concern for, or probable are acceptable for a diagnosis that is being evaluated, monitored or treated as if it exists and can be coded in the inpatient setting, when documented at the time of discharge.
Thank you,
Krystin Dickens RN, BSN
CDI Specialist
tiger text
Please use your independent medical judgment in providing your response.
== END 2025-02-20 14:04 | disposition home or self-care (01) | DRG 291 ==
LOC: 3 WEST ACU 22:50
PROVIDERS: Emergency Medicine; Hospitalist; Physician Assistant; Registered Nurse; ADMITTING PHYSICIAN Hospitalist; ATTENDING PHYSICIAN Hospitalist; CONSULT PHYSICIAN Internal Medicine; CONSULT PHYSICIAN Internal Medicine Cardiovascular Disease; EMERGENCY PHYSICIAN Emergency Medicine; FAMILY PHYSICIAN Family Medicine; REFERRING PHYSICIAN Internal Medicine Cardiovascular Disease
PROC: 30233N1 Transfusion of Nonautologous Red Blood Cells into Peripheral Vein, Percutaneous Approach (ICD-10-PCS; 2025-02-15)
DX: I13.0 Hypertensive heart and chronic kidney disease with heart failure and stage 1 through stage 4 chronic kidney disease, or unspecified chronic kidney disease (principal); I50.33 Acute on chronic diastolic (congestive) heart failure; D62 Acute posthemorrhagic anemia; I31.39 Other pericardial effusion (noninflammatory); I48.21 Permanent atrial fibrillation; D68.32 Hemorrhagic disorder due to extrinsic circulating anticoagulants; N18.31 Chronic kidney disease, stage 3a; K57.30 Diverticulosis of large intestine without perforation or abscess without bleeding; K64.9 Unspecified hemorrhoids; I27.20 Pulmonary hypertension, unspecified; D72.819 Decreased white blood cell count, unspecified; E11.22 Type 2 diabetes mellitus with diabetic chronic kidney disease; I08.2 Rheumatic disorders of both aortic and tricuspid valves; E87.6 Hypokalemia; M32.9 Systemic lupus erythematosus, unspecified; E78.5 Hyperlipidemia, unspecified; T50.2X5A Adverse effect of carbonic-anhydrase inhibitors, benzothiadiazides and other diuretics, initial encounter; Z66 Do not resuscitate; Z79.01 Long term (current) use of anticoagulants; Z79.899 Other long term (current) drug therapy
CPT/HCPCS: 36430; 71046; 80048; 80053; 80061; 82607; 82728; 82746; 83540; 83550; 83735; 83880; 84439; 84443; 84484; 85025; 85027; 85610; 86850; 86900; 86901; 86920; 93005; 96374; 97163; 97166; 99285; J2916; P9016